=== PATIENT | female | born 1990 | race Caucasian/White ===

== ENCOUNTER 2019-01-16 16:10 | Inpatient (IN) | payer MEDICAID, OTHER ==
[~2019-01-16] VITALS: Ht 170.2 cm; Wt 86.3 kg
[~2019-01-16 16:10] MED LIST: ACET1TAB40 PO; ACET325T33 PO; BIRTH CONTROL; CEPH-443 PO; METR500T PO; NAPR-985 PO
[2019-01-16] MEDS ORDERED: ONDANSETRON 4 MG INJ IV STA (17:35)
[2019-01-16] MEDS ORDERED: FAMOTIDINE 20 MG INJ IV STA (17:35)
[2019-01-16] MEDS ORDERED: morphine 4 MG/ML VIAL IV STA (17:35)
[2019-01-16] MEDS ORDERED: SOD CHLORIDE 0.9% 100 ML ONE (19:37)
[2019-01-16] MEDS ORDERED: IOHEXOL 300MG/ML 150 ML BTL ONE (19:37)
--- NOTE | 2019-01-16 20:23 | ERD ---
ER Documentation Chief Complaint Chief Complaint INTERMITTENT EPIGASTRIC PAIN X 3 WEEKS, + GERD HPI 28-year-old female with history of cholelithiasis, presents the emergency department, complaining of worsening of epigastric pain for 3 days. The pain is dull, sometimes burning, constant, 8/10, associated with gastric reflux. The patient has been taking antiacid medications without improvement of the symptoms. She was seen at [facility] 2 weeks ago at that time a transaminitis of ALT 1011 was documented, no evidence of cholecystitis according to the ultrasound. Currently the patient denies fevers, no chills. ROS All systems reviewed and are negative except as per history of present illness. Medications Home Meds Active Scripts Metronidazole* (Flagyl*) 500 Mg Tablet, 500 MG PO BID for 7 Days, TAB Prov:ROBB NAQVI PA-C 07/12/16 Naproxen* (Naprosyn*) 500 Mg Tablet, 500 MG PO BID, #30 TAB Prov:ROBB NAQVI PA-C 07/12/16 Acetaminophen-Codeine* (Acetaminophen-Cod #3*) 300-30 Mg Tab, 1 TAB PO Q4H PRN for PAIN, #10 TAB Prov:DANIELLE LOPEZ MD 03/24/16 Cephalexin* (Keflex*) 500 Mg Capsule, 500 MG PO QID for 5 Days, CAP Prov:FIORDALIZA CARO DO 03/19/16 Acetaminophen* (Tylenol*) 325 Mg Tablet, 2 TAB PO Q8 PRN for PAIN AND OR ELEVATED TEMP, #10 TAB Prov:FIORDALIZA CARO DO 03/19/16 Reported Medications [ Control] No Conflict Check 05/04/10 Allergies Allergies: Coded Allergies: ceftriaxone (Verified Allergy, Severe, SOB,chest tightness, 01/16/19) PMhx/Soc History of Surgery: No Anesthesia Reaction: No Hx Neurological Disorder: No Hx Respiratory Disorders: No Hx Cardiac Disorders: No Hx Psychiatric Problems: No Hx Miscellaneous Medical Probl: Yes (GERD ) Hx Alcohol Use: No Hx Substance Use: No Hx Tobacco Use: No Smoking Status: Never smoker Physical Exam Vitals Vital Signs Date Temp Pulse Resp B/P (MAP) Pulse Ox O2 O2 Flow FiO2 Time Delivery Rate 01/16/19 98.9 99 18 156/72 98 16:19 (100) Physical Exam Patient alert, oriented, vital signs stable, mild distress due to pain. HEENT: Normocephalic, atraumatic. EYES: PERRLA, EOMI, Sclera and conjunctiva appear normal. EARS: Canals clear, tympanic membranes WNL. THROAT: Normal oropharynx. NECK: Supple, No lymphadenopathy. Full ROM without pain or tenderness. HEART: RRR, no rubs, murmurs, clicks or gallops. LUNGS: Clear to auscultation. ABDOMEN: Soft, tender to palpation in the right upper quadrant, + [place] EXTREMITIES: No edema bilaterally. BACK: Full ROM, no deformity, normal back exam NEURO: Cranial nerves grossly intact, no motor or sensory deficit Result Diagram: 01/17/1944901/17/19449 Results 24 hrs Laboratory Tests Test 01/16/19 17:40 01/16/19 17:46 White Blood Count 5.5 10^3/ul Red Blood Count 4.72 10^6/ul Hemoglobin 13.9 g/dl Hematocrit 41.7 % Mean Corpuscular Volume 88.3 fl Mean Corpuscular Hemoglobin 29.4 pg Mean Corpuscular Hemoglobin Concent 33.3 g/dl Red Cell Distribution Width 12.4 % Platelet Count 282 10^3/UL Mean Platelet Volume 9.3 fl Immature Granulocytes % 0.400 % Neutrophils % 55.1 % Lymphocytes % 31.9 % Monocytes % 11.7 % Eosinophils % 0.5 % Basophils % 0.4 % Nucleated Red Blood Cells % 0.0 /100WBC Immature Granulocytes # 0.020 10^3/ul Neutrophils # 3.0 10^3/ul Lymphocytes # 1.7 10^3/ul Monocytes # 0.6 10^3/ul Eosinophils # 0.0 10^3/ul Basophils # 0.0 10^3/ul Nucleated Red Blood Cells # 0.0 10^3/ul Urine Color YELLOW Urine Clarity SLIGHTLY CLOUDY Urine pH 8.0 Urine Specific [place] 1.010 Urine Ketones 1+ mg/dL Urine Nitrite NEGATIVE mg/dL Urine Bilirubin NEGATIVE mg/dL Urine Urobilinogen NEGATIVE mg/dL Urine Leukocyte Esterase NEGATIVE Herman/ul Urine Microscopic RBC 6 /HPF Urine Microscopic WBC 2 /HPF Urine Squamous Epithelial Cells MODERATE /HPF Urine Bacteria FEW /HPF Urine Hemoglobin NEGATIVE mg/dL Urine Glucose NEGATIVE mg/dL Urine Total Protein NEGATIVE mg/dl Sodium Level 140 mmol/L Potassium Level 4.3 mmol/L Chloride Level 102 mmol/L Carbon Dioxide Level 25 mmol/L Anion Gap 13 Blood Urea Nitrogen 9 mg/dl Creatinine 0.67 mg/dl Est Glomerular Filtrat Rate mL/min > 60 mL/min Glucose Level 89 mg/dl Calcium Level 10.2 mg/dl Total Bilirubin 0.4 mg/dl Direct Bilirubin 0.00 mg/dl Indirect Bilirubin 0.4 mg/dl Aspartate Amino Transf (AST/SGOT) 410 IU/L Alanine Aminotransferase (ALT/SGPT) 546 IU/L Alkaline Phosphatase 98 IU/L Total Protein 9.3 g/dl Albumin 4.8 g/dl Globulin 4.50 g/dl Albumin/Globulin Ratio 1.06 Lipase 82 U/L POC Beta HCG, Qualitative NEGATIVE Current Medications Medications Dose Sig/Adriana Start Time Status Last (Trade) Ordered Route PRN Stop Time Admin Dose Reason Admin Morphine 4 mg ONCE STAT 01/16/19 DC 01/16/19 Sulfate IV 17:35 01/16/19 17:43 (morphine) 17:36 Ondansetron 4 mg ONCE STAT 01/16/19 DC 01/16/19 HCl (Zofran IV 17:35 01/16/19 17:43 Inj) 17:36 Famotidine 20 mg ONCE STAT 01/16/19 DC 01/16/19 (Pepcid Iv) IV 17:35 01/16/19 17:43 17:36 IV Flush 10 ml STK-MED 01/16/19 DC (NS 10 ml) ONCE .ROUTE 19:37 01/16/19 19:38 Sodium 100 ml @ ud STK-MED 01/16/19 DC Chloride ONCE .ROUTE 19:37 01/16/19 19:38 Iohexol 150 ml STK-MED 01/16/19 DC (Omnipaque ONCE .ROUTE 19:37 01/16/19 300mg/ ml) 19:38 Sodium 1,000 ml @ Q1H ONCE 01/16/19 DC 01/16/19 Chloride 1,000 mls/hr IV 21:00 01/16/19 21:03 21:59 Piperacillin 100 ml @ ONCE ONCE 01/16/19 Cancel Sod/ 200 mls/hr IVPB 21:00 01/16/19 Tazobactam 21:29 Sod Morphine 2 mg ONCE STAT 01/16/19 DC 01/16/19 Sulfate IV 20:46 01/16/19 21:03 (morphine) 20:50 Sodium 1,000 ml @ [id number] IV 01/16/19 DC 01/16/19 Chloride 80 mls/hr 21:27 01/17/19 23:41 09:56 DIAGNOSTIC IMAGING REPORT Patient: MARLENE OLMEDO : 1990 Age: 28 Sex: F MR #: [id number] DOS: 01/16/19 1735 Ordering MD: DANIELLE LOPEZ MD Location: [facility] Room/Bed: PROCEDURE: Right upper quadrant ultrasound CLINICAL INDICATION: Abdominal pain TECHNIQUE: Multiple real-time images were acquired of the patient's abdomen and right retroperitoneum utilizing a high resolution transducer. COMPARISON: None FINDINGS: The liver is normal in echogenicity and measures 13.7 cm. No focal hepatic masses are seen. The gallbladder is physiologically distended. There is a s tommie large stone in the neck of the gallbladder. There is borderline thickening of the gallbladder wall. No pericholecystic fluid is seen. The intra and extrahepatic bile ducts are normal in caliber. The common bile duct measures 4.4 mm. Midline images demonstrate the pancreas to be normal in echogenicity without obvious inflammatory change. Survey views of the right kidney demonstrate no evidence of hydronephrosis or renal calculi. The right kidney measures 9.5 cm. IMPRESSION: 1. Large 2 cm gallstone in the neck of the gallbladder. There is borderline thickening of the gallbladder wall. No pericholecystic fluid. 2. No biliary duct dilatation RPTAT: HH .Adam Becerra MD, Date Time Electronically viewed and signed by .Adam Becerra MD, on 01/16/2019 18:26 .W/ CC: DANIELLE LOPEZ MD DIAGNOSTIC IMAGING REPORT Patient: MARLENE OLMEDO : 1990 Age: 28 Sex: F MR #: [id number] [facility] #: [id number] DOS: 01/16/19 1922 Ordering MD: DANIELLE LOPEZ MD Location: [facility] Room/Bed: PROCEDURE: CT Abdomen and Pelvis With Intravenous Contrast CLINICAL INDICATION: Abdominal pain. TECHNIQUE: Axial computed tomography images of the abdomen and pelvis with intravenous contrast. Sagittal and coronal reformatted images were created and reviewed. CTDIvol (mGy) = 13.95; total DLP (mGy-cm) = 798.49. This CT exam was performed using one or more of the following dose reduction techniques: automated exposure control, adjustment of the mA and/or kV according to patient size, and /or use of iterative reconstruction technique. DICOM images are available. CONTRAST: 100 mL of Omnipaque-300 was administered intravenously. COMPARISON: Right upper quadrant ultrasound examination dated 01/16/2019. FINDINGS: LUNG BASES: Unremarkable. No mass. No consolidation. ABDOMEN: LIVER: Unremarkable. No mass. GALLBLADDER AND BILE DUCTS: Noncalcified gallstones in the gallbladder. No gallbladder wall thickening or pericholecystic fluid. No ductal dilation. PANCREAS: Unremarkable. No mass. No ductal dilation. SPLEEN: Unremarkable. No splenomegaly. ADRENALS: Unremarkable. No mass. KIDNEYS AND URETERS: Nonobstructing 3 mm calculus lower pole right kidney. No additional calculi on either side. No hydronephrosis. STOMACH AND BOWEL: Unremarkable. No obstruction. No mucosal thickening. PELVIS: APPENDIX: No findings to suggest acute appendicitis. BLADDER: Unremarkable. No mass. REPRODUCTIVE: Unremarkable as visualized. ABDOMEN and PELVIS: INTRAPERITONEAL SPACE: Unremarkable. No free air. No significant fluid collection. BONES/JOINTS: Degenerative disc changes L5-S1. No acute osseous abnormality. No dislocation. SOFT TISSUES: Unremarkable. VASCULATURE: Unremarkable. LYMPH NODES: Unremarkable. No enlarged lymph nodes. IMPRESSION: 1. Noncalcified gallstones in the gallbladder. No gallbladder wall thickening or pericholecystic fluid. No biliary dilatation. 2. Nonobstructing 3 mm calculus lower pole right kidney. No additional calculi on either side. No hydronephrosis. 3. No acute abnormality demonstrated in the abdomen and pelvis. RPTAT: [facility] Carroll Benítez Physician Date Time Electronically viewed and signed by Carroll Benítez Physician User Interface Developer on 01/16/2019 20:27 Procedures/MDM Vital signs stable. Differential diagnosis include but not limited to: UTI, colitis, gastroenteritis, kidney stones, irritable bowel syndrome, inflammatory bowel syndrome, malabsorption syndrome, cholelithiasis, food intolerance, medication side effect, pancreatitis, diverticulitis, bowel obstruction. Physical examination and clinical presentation consistent most likely with intractable abdominal pain secondary to cholelithiasis with early cholecystitis and transaminitis. During the ED course the patient remained stable, persisted with pain despite the medications given in the emergency department, therefore, we will request an admission for further evaluation and management. Results and clinical impression discussed with the patient who agrees with management. The patient is stable to be treated admitted in [facility]. Dr.Daniel Houser - Surgery- has been consulted. Disclaimer: Inadvertent spelling and grammatical errors are likely due to EHR/dictation software use and do not reflect on the overall quality of patient care. Also, please note that the electronic time recorded on this note does not necessarily reflect the actual time of the patient encounter. Departure Condition: Stable DAMIÁN GARCIA MD Jan 16, 2019 20:23
[2019-01-16] MEDS ORDERED: morphine 2 MG INJ IV STA (20:46)
[2019-01-16] MEDS ORDERED: PIPER-TAZO 3.375 GM IV (PMX) 100 ML IVPB ONE (21:00)
[2019-01-16] MEDS ORDERED: SOD CHLORIDE 0.9% 1,000 ML IV ONE (21:00)
[2019-01-16] MEDS ORDERED: SOD CHLORIDE 0.9% 1,000 ML IV SCH (21:27)
[2019-01-16] MEDS ORDERED: metroNIDAZOLE 500 MG/NS (PMX) 100 ML IVPB ONE (21:30)
[2019-01-16] MEDS ORDERED: KETOROLAC 30 MG INJ IV PRN (21:30)
[2019-01-16] MEDS ORDERED: ONDANSETRON 4 MG INJ IV PRN ×2 (21:30→22:00)
[2019-01-16] MEDS ORDERED: CIPROFLOXACIN 400MG/D5W 200 ML IVPB ONE (21:30)
[2019-01-16] MEDS ORDERED: ACETAMINOPHEN 325 MG TAB PO PRN ×2 (21:30→22:00)
--- NOTE | 2019-01-16 21:39 | HP ---
Date/Time of Note Date/Time of Note DATE: 01/16/19 TIME: 21:39 Assessment/Plan VTE Prophylaxis SCD applied (from Nsg): Yes Pharmacological prophylaxis: NA/contraindicated Pharm contraindication: low risk/ambulating Lines/Catheters IV Catheter Type (from Nrsg): Saline Lock Assessment/Plan Hospital Course This is a 28-year-old female being admitted to the [facility] floor for: #1 epigastric pain: Possibly multifactorial secondary to impacted gallstone and/or dyspepsia. Patient does report that she has been feeling bloated for a course of 3 weeks. She has been told she has gallstones which has been confirmed on today's ultrasound as well. There is a gallstone in the neck of the gallbladder. Patient also reports symptoms of acid reflux. General surgery Dr. Houser has been consulted at the current time who recommends MRCP for further evaluation. We will also provide the patient with Protonix 40 mg IV daily as well as Carafate 1 mg p.o. every 6 hours times 1 day. Consider GI consultation if indicated. We will keep the patient n.p.o. except meds. Prophylactic antibiotics of Cipro and Flagyl. #2 transaminitis: We will check hepatitis panel, will get an MRCP as per #1. #3 obesity: We will check hemoglobin A1c, lipid panel, TSH #4 history of diabetes mellitus: Patient reports a history of hemoglobin A1c of 9 in the past. She has been able to control her diabetes according to her with diet alone. Will check hemoglobin A1c. #5 DVT GI prophylaxis: SCDs, Protonix IV Further treatment strategy will be implemented as per the clinical course Result Diagram: 01/16/19 1740 01/16/19 1740 Results 24hrs Laboratory Tests Test 01/16/19 17:40 01/16/19 17:46 White Blood Count 5.5 # Red Blood Count 4.72 Hemoglobin 13.9 Hematocrit 41.7 Mean Corpuscular Volume 88.3 Mean Corpuscular Hemoglobin 29.4 Mean Corpuscular Hemoglobin Concent 33.3 Red Cell Distribution Width 12.4 Platelet Count 282 Mean Platelet Volume 9.3 # Immature Granulocytes % 0.400 Neutrophils % 55.1 Lymphocytes % 31.9 Monocytes % 11.7 H Eosinophils % 0.5 Basophils % 0.4 Nucleated Red Blood Cells % 0.0 Immature Granulocytes # 0.020 Neutrophils # 3.0 Lymphocytes # 1.7 Monocytes # 0.6 Eosinophils # 0.0 Basophils # 0.0 Nucleated Red Blood Cells # 0.0 Urine Color YELLOW Urine Clarity SLIGHTLY CLOUDY A Urine pH 8.0 Urine Specific [place] 1.010 Urine Ketones 1+ H Urine Nitrite NEGATIVE Urine Bilirubin NEGATIVE Urine Urobilinogen NEGATIVE Urine Leukocyte Esterase NEGATIVE Urine Microscopic RBC 6 H Urine Microscopic WBC 2 Urine Squamous Epithelial Cells MODERATE Urine Bacteria FEW A Urine Hemoglobin NEGATIVE Urine Glucose NEGATIVE Urine Total Protein NEGATIVE Sodium Level 140 Potassium Level 4.3 Chloride Level 102 Carbon Dioxide Level 25 Anion Gap 13 Blood Urea Nitrogen 9 Creatinine 0.67 Est Glomerular Filtrat Rate mL/min > 60 Glucose Level 89 Calcium Level 10.2 Total Bilirubin 0.4 Direct Bilirubin 0.00 Indirect Bilirubin 0.4 Aspartate Amino Transf (AST/SGOT) 410 H Alanine Aminotransferase (ALT/SGPT) 546 H Alkaline Phosphatase 98 Total Protein 9.3 H Albumin 4.8 Globulin 4.50 H Albumin/Globulin Ratio 1.06 Lipase 82 POC Beta HCG, Qualitative NEGATIVE HPI/ROS Admit Date/Time Admit Date/Time Hx of Present Illness Chief complaint: Epigastric pain times 3 weeks, worse over the last 3 days This is a 28-year-old female with history of cholelithiasis, presents the emergency department, complaining of worsening of epigastric pain for 3 days. The pain is dull, sometimes burning, constant, 8/10, associated with gastric reflux. The patient has been taking antiacid medications without improvement of the symptoms. She was seen at [facility] 2 weeks ago at that time a transaminitis of ALT 1011 was documented, no evidence of cholecystitis according to the ultrasound. Patient continues to have recurrent symptoms as well as feeling abdominal bloating. She does report a history of diabetes with her hemoglobin A1c being 9 at one point however she has been able to control it with diet alone. Allergies: Ceftriaxone Medications: None ROS Const: As per HPI Eyes : No pain discharge or redness or change in visual acuity ENT: No pain, sore throat, congestion, congestion, dysphagia or discharge Respiratory: No shortness of breath, cough, sputum, wheezing, or pleuritic pain Cardiovascular: No chest pain, palpitation, PND, or edema GI : As per HPI Genitourinary: No dysuria, hematuria, flank pain , discharge or CVA tenderness Musculoskeletal: No joint pain, back pain, neck pain, restricted range of motion in neck or joints Skin: No rash, bruising or hives Neuro: No headache, dizziness, syncope, seizure, focal weakness Endocrine: No polyuria, polydipsia, temperature intolerance Psych: No hallucination, depression, anxiety or suicidal ideation PMH/Family/Social Past Medical History Gallstones, diabetes mellitus Medications Current Medications Sodium Chloride 1,000 ml @ 1,000 mls/hr Q1H ONCE IV Last administered on 01/16/19at 21:03; Admin Dose 1,000 MLS/HR; Start 01/16/19 at 21:00; Stop 01/16/19 at 21:59 Ciprofloxacin/ Dextrose 200 ml @ 200 mls/hr ONCE ONCE IVPB ; Start 01/16/19 at 21:30; Stop 01/16/19 at 22:29 Metronidazole 100 ml @ 100 mls/hr ONCE ONCE IVPB ; Start 01/16/19 at 21:30; Stop 01/16/19 at 22:29 Sodium Chloride 1,000 ml @ 80 mls/hr [id number] IV ; Start 01/16/19 at 21:27; Stop 01/17/19 at 09:56 Ketorolac Tromethamine (Toradol) 30 mg ER BRIDGE PRN IV .PAIN; Start 01/16/19 at 21:30; Stop 01/17/19 at 21:29 Ondansetron HCl (Zofran Inj) 4 mg BRIDGE ORDER PRN IV NAUSEA/VOMITING; Start 01/16/19 at 21:30; Stop 01/17/19 at 21:29 Acetaminophen (Tylenol Tab) 650 mg ER BRIDGE PRN PO .MILD PAIN 1-3 OR TEMP; Start 01/16/19 at 21:30; Stop 01/17/19 at 21:29 Sodium Chloride 1,000 ml @ 100 mls/hr Q10H IV ; Start 01/17/19 at 00:00; Status UNV IV Flush (NS 3 ml) 3 ml PER PROTOCOL IV ; Start 01/16/19 at 22:00; Status UNV Ondansetron HCl (Zofran Inj) 4 mg Q6H PRN IV NAUSEA/VOMITING; Start 01/16/19 at 22:00; Status UNV Acetaminophen (Tylenol Tab) 650 mg Q6H PRN PO .PAIN 1-3 OR TEMP; Start 01/16/19 at 22:00; Status UNV Hydromorphone HCl (Dilaudid) 0.5 mg Q4H PRN IV .SEVERE PAIN 7-10; Start 01/16/19 at 22:00; Status UNV Docusate Sodium (Colace) 100 mg Q12H PRN PO .CONSTIPATION; Start 01/16/19 at 22:00; Status UNV Bisacodyl (Dulcolax) 5 mg DAILY PRN PO .CONSTIPATION; Start 01/16/19 at 22:00; Status UNV Ciprofloxacin/ Dextrose 200 ml @ 200 mls/hr Q12 IVPB ; Start 01/17/19 at 09:00; Status UNV Metronidazole 100 ml @ 100 mls/hr Q6 IVPB ; Start 01/17/19 at 00:00; Status UNV Coded Allergies: ceftriaxone (Verified Allergy, Severe, SOB,chest tightness, 01/16/19) Past Surgical History Past Surgical Hx: no surgical history Family History Significant Family History: no pertinent family hx Social History Alcohol Use: none Smoking Status: Never smoker Drug Use: none Exam/Review of Systems Vital Signs Vitals Vital Signs Date Temp Pulse Resp B/P (MAP) Pulse Ox O2 O2 Flow FiO2 Time Delivery Rate 01/16/19 98.9 99 18 156/72 98 16:19 (100) Exam Exam General: Patient is currently lying in bed in mild distress from abdominal pain HEENT: Atraumatic, normocephalic. The pupils are equal, round and reactive. Extraocular motor are intact Neck: Supple with full range of motion. No rigidity or meningismus Chest: Nontender Lungs: Clear to auscultation bilaterally no crackles rales or wheezing Heart: Normal S1-S2, Regular rhythm and rate. No murmur, S3, or S4 Abdomen: Obese, soft , tenderness to palpation over the epigastric region, mild tenderness elevation of the right upper quadrant. Normal bowel sounds. Abdomen nondistended. No CVA tenderness to palpation bilaterally Extremities: Normal to inspection, no edema no cyanosis Neurologic: Normal mental status, speech normal, cranial nerves II through XII are intact, motor and sensory are intact, no focal weakness Additional Comments PROCEDURE: Right upper quadrant ultrasound CLINICAL INDICATION: Abdominal pain TECHNIQUE: Multiple real-time images were acquired of the patient's abdomen and right retroperitoneum utilizing a high resolution transducer. COMPARISON: None FINDINGS: The liver is normal in echogenicity and measures 13.7 cm. No focal hepatic masses are seen. The gallbladder is physiologically distended. There is a single large stone in the neck of the gallbladder. There is borderline thickening of the gallbladder wall. No pericholecystic fluid is seen. The intra and extrahepatic bile ducts are normal in caliber. The common bile duct measures 4.4 mm. Midline images demonstrate the pancreas to be normal in echogenicity without obvious inflammatory change. Survey views of the right kidney demonstrate no evidence of hydronephrosis or renal calculi. The right kidney measures 9.5 cm. IMPRESSION: 1. Large 2 cm gallstone in the neck of the gallbladder. There is borderline thickening of the gallbladder wall. No pericholecystic fluid. 2. No biliary duct dilatation RPTAT: HH .Adam Becerra MD, MD Date Time Electronically viewed and signed by .Adam Becerra MD, MD on 01/16/2019 18:26 .W/ CC: DANIELLE LOPEZ MD [id number] PROCEDURE: CT Abdomen and Pelvis With Intravenous Contrast CLINICAL INDICATION: Abdominal pain. TECHNIQUE: Axial computed tomography images of the abdomen and pelvis with intravenous contrast. Sagittal and coronal reformatted images were created and reviewed. CTDIvol (mGy) = 13.95; total DLP (mGy-cm) = 798.49. This CT exam was performed using one or more of the following dose reduction techniques: automated exposure control, adjustment of the mA and/or kV according to patient size, and/or use of iterative reconstruction technique. DICOM images are available. CONTRAST: 100 mL of Omnipaque-300 was administered intravenously. COMPARISON: Right upper quadrant ultrasound examination dated 01/16/2019. FINDINGS: LUNG BASES: Unremarkable. No mass. No consolidation. ABDOMEN: LIVER: Unremarkable. No mass. GALLBLADDER AND BILE DUCTS: Noncalcified gallstones in the gallbladder. No gallbladder wall thickening or pericholecystic fluid. No ductal dilation. PANCREAS: Unremarkable. No mass. No ductal dilation. SPLEEN: Unremarkable. No splenomegaly. ADRENALS: Unremarkable. No mass. KIDNEYS AND URETERS: Nonobstructing 3 mm calculus lower pole right kidney. No additional calculi on either side. No hydronephrosis. STOMACH AND BOWEL: Unremarkable. No obstruction. No mucosal thickening. PELVIS: APPENDIX: No findings to suggest acute appendicitis. BLADDER: Unremarkable. No mass. REPRODUCTIVE: Unremarkable as visualized. ABDOMEN and PELVIS: INTRAPERITONEAL SPACE: Unremarkable. No free air. No significant fluid collection. BONES/JOINTS: Degenerative disc changes L5-S1. No acute osseous abnormality. No dislocation. SOFT TISSUES: Unremarkable. VASCULATURE: Unremarkable. LYMPH NODES: Unremarkable. No enlarged lymph nodes. IMPRESSION: 1. Noncalcified gallstones in the gallbladder. No gallbladder wall thickening or pericholecystic fluid. No biliary dilatation. 2. Nonobstructing 3 mm calculus lower pole right kidney. No additional calculi on either side. No hydronephrosis. 3. No acute abnormality demonstrated in the abdomen and pelvis. RPTAT: [facility] Carroll Benítez Physician Pony Worker Date Time Electronically viewed and signed by Carroll Benítez Physician Pony Worker on 01/16/2019 20:27 RmC/ CC: DANIELLE LOPEZ MD [id number] GUDELIA MITCHELL Jan 16, 2019 21:39
[2019-01-16] MEDS ORDERED: NACL 0.9% 3 ML SYG IV SCH (22:00)
[2019-01-16] MEDS ORDERED: DOCUSATE SODIUM 100 MG CAP PO PRN (22:00)
[2019-01-16] MEDS ORDERED: BISACODYL (EC) 5 MG TAB PO PRN (22:00)
[2019-01-17 00:30] VITALS: Ht 170.2 cm; Wt 86.3 kg
[2019-01-17 00:53] VITALS: BP 130/79; PULSE 82; RESP 16
[2019-01-17] MEDS: SUCRALFATE 1 GM TAB PO SCH ×3 (01:36→17:03)
[2019-01-17] MEDS: SOD CHLORIDE 0.9% 1,000 ML IV SCH ×2 (01:36→14:05)
--- NOTE | 2019-01-17 02:14 | CONS ---
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 IV antibiotics laparoscopic cholecystectomy tomorrow. No need at this time for ERCP Consultation Date/Type/Reason Admit Date/Time Date of Consultation: Jan 17, 2019 Type of Consult General surgery consult Reason for Consultation Abdominal pain elevated LFTs gallstones Requesting Provider: GUDELIA MITCHELL Date/Time of Note DATE: 01/17/19 TIME: 02:13 Hx of Present Illness Patient 28-year-old female who has had several episodes of epigastric right upper quadrant pain over the past several months. [facility] has been noted to have elevated LFTs with transaminases in the 800-1000 range just as recently as a couple of weeks ago. She was told that she would need to be referred out but because of lack of insurance she was unable to seek further evaluation. She presented to the emergency room at [facility] today and was noted to have severe epigastric right upper quadrant pain. On ultrasound she was noted to have a large gallstone measuring approximately 2 cm with impaction to the neck of the gallbladder. LFTs were elevated with an AST/ALT 410/546 alk phos is 98 total bilirubin 0.4 MRI was performed and showed no evidence of choledocholithiasis She also has been complaining of reflux symptoms She denies any past surgical history past medical history She is with 2 children ages 11 and 6 Past Medical History Home Meds Active Scripts Metronidazole* (Flagyl*) 500 Mg Tablet, 500 MG PO BID for 7 Days, TAB Prov:ROBB NAQVI PA-C 07/12/16 Naproxen* (Naprosyn*) 500 Mg Tablet, 500 MG PO BID, #30 TAB Prov:ROBB NAQVI PA-C 07/12/16 Acetaminophen-Codeine* (Acetaminophen-Cod #3*) 300-30 Mg Tab, 1 TAB PO Q4H PRN for PAIN, #10 TAB Prov:DANIELLE LOPEZ MD 03/24/16 Cephalexin* (Keflex*) 500 Mg Capsule, 500 MG PO QID for 5 Days, CAP Prov:FIORDALIZA CARO DO 03/19/16 Acetaminophen* (Tylenol*) 325 Mg Tablet, 2 TAB PO Q8 PRN for PAIN AND OR ELEVATED TEMP, #10 TAB Prov:FIORDALIZA CARO DO 03/19/16 Reported Medications [ Control] No Conflict Check 05/04/10 Medications Current Medications Sodium Chloride 1,000 ml @ 80 mls/hr [id number] IV Last administered on 01/16/19at 23:41; Admin Dose 80 MLS/HR; Start 01/16/19 at 21:27; Stop 01/17/19 at 09:56 Ketorolac Tromethamine (Toradol) 30 mg ER BRIDGE PRN IV .PAIN; Start 01/16/19 at 21:30; Stop 01/17/19 at 21:29 Ondansetron HCl (Zofran Inj) 4 mg BRIDGE ORDER PRN IV NAUSEA/VOMITING; Start 01/16/19 at 21:30; Stop 01/17/19 at 21:29 Acetaminophen (Tylenol Tab) 650 mg ER BRIDGE PRN PO .MILD PAIN 1-3 OR TEMP Last administered on 01/17/19at 01:36; Admin Dose 650 MG; Start 01/16/19 at 21:30; Stop 01/17/19 at 21:29 Sodium Chloride 1,000 ml @ 100 mls/hr Q10H IV Last administered on 01/17/19at 01:36; Admin Dose 100 MLS/HR; Start 01/17/19 at 00:00 IV Flush (NS 3 ml) 3 ml PER PROTOCOL IV ; Start 01/16/19 at 22:00 Ondansetron HCl (Zofran Inj) 4 mg Q6H PRN IV NAUSEA/VOMITING; Start 01/16/19 at 22:00 Acetaminophen (Tylenol Tab) 650 mg Q6H PRN PO .PAIN 1-3 OR TEMP; Start 01/16/19 at 22:00 Hydromorphone HCl (Dilaudid) 0.5 mg Q4H PRN IV .SEVERE PAIN 7-10; Start 01/16/19 at 22:00 Docusate Sodium (Colace) 100 mg Q12H PRN PO .CONSTIPATION; Start 01/16/19 at 22:00 Bisacodyl (Dulcolax) 5 mg DAILY PRN PO .CONSTIPATION; Start 01/16/19 at 22:00 Ciprofloxacin/ Dextrose 200 ml @ 200 mls/hr Q12 IVPB ; Start 01/17/19 at 09:00 Metronidazole 100 ml @ 100 mls/hr Q6 IVPB ; Start 01/17/19 at 00:00 Pantoprazole (Protonix Iv) 40 mg DAILY@06 IV ; Start 01/17/19 at 00:30 Sucralfate (Carafate) 1 gm Q6 PO Last administered on 01/17/19at 01:36; Admin Dose 1 GM; Start 01/17/19 at 00:30; Stop 01/18/19 at 00:29 Allergies: Coded Allergies: ceftriaxone (Verified Allergy, Severe, SOB,chest tightness, 01/16/19) Past Surgical History Past Surgical Hx: no surgical history Social History Alcohol Use: none Smoking Status: Never smoker Drug Use: none Exam/Review of Systems Exam Vitals Vital Signs Date Temp Pulse Resp B/P (MAP) Pulse Ox O2 O2 Flow FiO2 Time Delivery Rate 01/17/19 98.6 82 16 130/79 97 Room Air 00:53 (96) Exam Patient is alert and oriented x3 complaining of epigastric pain and burning HEENT pupils equal react light sclerae anicteric. Lungs clear to auscultation. Heart regular rate and rhythm without gallops murmurs or rubs normal S1-S2. Abdomen soft mildly obese with moderate tenderness to epigastrium on deep palpation. Results Result Diagram: 01/16/19 1740 01/16/19 1740 Results 24hrs Laboratory Tests Test 01/16/19 17:40 01/16/19 17:46 White Blood Count 5.5 # Red Blood Count 4.72 Hemoglobin 13.9 Hematocrit 41.7 Mean Corpuscular Volume 88.3 Mean Corpuscular Hemoglobin 29.4 Mean Corpuscular Hemoglobin Concent 33.3 Red Cell Distribution Width 12.4 Platelet Count 282 Mean Platelet Volume 9.3 # Immature Granulocytes % 0.400 Neutrophils % 55.1 Lymphocytes % 31.9 Monocytes % 11.7 H Eosinophils % 0.5 Basophils % 0.4 Nucleated Red Blood Cells % 0.0 Immature Granulocytes # 0.020 Neutrophils # 3.0 Lymphocytes # 1.7 Monocytes # 0.6 Eosinophils # 0.0 Basophils # 0.0 Nucleated Red Blood Cells # 0.0 Urine Color YELLOW Urine Clarity SLIGHTLY CLOUDY A Urine pH 8.0 Urine Specific [place] 1.010 Urine Ketones 1+ H Urine Nitrite NEGATIVE Urine Bilirubin NEGATIVE Urine Urobilinogen NEGATIVE Urine Leukocyte Esterase NEGATIVE Urine Microscopic RBC 6 H Urine Microscopic WBC 2 Urine Squamous Epithelial Cells MODERATE Urine Bacteria FEW A Urine Hemoglobin NEGATIVE Urine Glucose NEGATIVE Urine Total Protein NEGATIVE Sodium Level 140 Potassium Level 4.3 Chloride Level 102 Carbon Dioxide Level 25 Anion Gap 13 Blood Urea Nitrogen 9 Creatinine 0.67 Est Glomerular Filtrat Rate mL/min > 60 Glucose Level 89 Calcium Level 10.2 Total Bilirubin 0.4 Direct Bilirubin 0.00 Indirect Bilirubin 0.4 Aspartate Amino Transf (AST/SGOT) 410 H Alanine Aminotransferase (ALT/SGPT) 546 H Alkaline Phosphatase 98 Total Protein 9.3 H Albumin 4.8 Globulin 4.50 H Albumin/Globulin Ratio 1.06 Lipase 82 POC Beta HCG, Qualitative NEGATIVE Medications Medication Current Medications Sodium Chloride 1,000 ml @ 80 mls/hr [id number] IV Last administered on 01/16/19at 23:41; Admin Dose 80 MLS/HR; Start 01/16/19 at 21:27; Stop 01/17/19 at 09:56 Ketorolac Tromethamine (Toradol) 30 mg ER BRIDGE PRN IV .PAIN; Start 01/16/19 at 21:30; Stop 01/17/19 at 21:29 Ondansetron HCl (Zofran Inj) 4 mg BRIDGE ORDER PRN IV NAUSEA/VOMITING; Start 01/16/19 at 21:30; Stop 01/17/19 at 21:29 Acetaminophen (Tylenol Tab) 650 mg ER BRIDGE PRN PO .MILD PAIN 1-3 OR TEMP Last administered on 01/17/19at 01:36; Admin Dose 650 MG; Start 01/16/19 at 21:30; Stop 01/17/19 at 21:29 Sodium Chloride 1,000 ml @ 100 mls/hr Q10H IV Last administered on 01/17/19at 01:36; Admin Dose 100 MLS/HR; Start 01/17/19 at 00:00 IV Flush (NS 3 ml) 3 ml PER PROTOCOL IV ; Start 01/16/19 at 22:00 Ondansetron HCl (Zofran Inj) 4 mg Q6H PRN IV NAUSEA/VOMITING; Start 01/16/19 at 22:00 Acetaminophen (Tylenol Tab) 650 mg Q6H PRN PO .PAIN 1-3 OR TEMP; Start 01/16/19 at 22:00 Hydromorphone HCl (Dilaudid) 0.5 mg Q4H PRN IV .SEVERE PAIN 7-10; Start 01/16/19 at 22:00 Docusate Sodium (Colace) 100 mg Q12H PRN PO .CONSTIPATION; Start 01/16/19 at 22:00 Bisacodyl (Dulcolax) 5 mg DAILY PRN PO .CONSTIPATION; Start 01/16/19 at 22:00 Ciprofloxacin/ Dextrose 200 ml @ 200 mls/hr Q12 IVPB ; Start 01/17/19 at 09:00 Metronidazole 100 ml @ 100 mls/hr Q6 IVPB ; Start 01/17/19 at 00:00 Pantoprazole (Protonix Iv) 40 mg DAILY@06 IV ; Start 01/17/19 at 00:30 Sucralfate (Carafate) 1 gm Q6 PO Last administered on 01/17/19at 01:36; Admin Dose 1 GM; Start 01/17/19 at 00:30; Stop 01/18/19 at 00:29 SULEMA AMADOR MD Jan 17, 2019 02:14
[2019-01-17] MEDS: PANTOPRAZOLE 40 MG INJ IV SCH (05:53)
[2019-01-17] MEDS: metroNIDAZOLE 500 MG/NS (PMX) 100 ML IVPB SCH ×5 (05:53→23:53)
[2019-01-17] MEDS: HYDROmorphONE 0.5 MG/0.5 ML SYG IV PRN ×3 (05:59→17:03)
[2019-01-17 07:29] VITALS: BP 109/62; PULSE 83; RESP 18
[2019-01-17] MEDS: CIPROFLOXACIN 400MG/D5W 200 ML IVPB SCH ×2 (08:06→21:10)
[2019-01-17] MEDS ORDERED: ASA/ACETAMINOPHEN/CAFF TAB PO ONE (10:30)
--- NOTE | 2019-01-17 10:38 | PN ---
Date/Time of Note Date/Time of Note DATE: 01/17/19 TIME: 10:36 Assessment/Plan VTE Prophylaxis SCD applied (from Nsg): Yes Pharmacological prophylaxis: NA/contraindicated Pharm contraindication: low risk/ambulating Lines/Catheters IV Catheter Type (from Nrsg): Peripheral IV Assessment/Plan Hospital Course SUBJECTIVE: Continues to have nausea/vomiting. OBJECTIVE: Physical Exam General: Adequately build 28 year-old female lying in bed in no apparent distress. HEENT: Normocephalic, atraumatic. Eyes: Anicteric sclerae, conjunctivae clear. ENT: Nasal septum midline, oral mucosa moist. Neck supple, no JVD noticed. Respiratory: Bilaterally clear breath sounds. No use of accessory muscles of respiration. No adventitious breath sounds. Cardiovascular: S1, S2 heard. Regular rate and rhythm. Abdomen: Soft and nondistended. Minimal epigastric tenderness. Bowel sounds positive in all 4 quadrants. Genitourinary: Deferred. Extremities: No cyanosis, no clubbing, no edema. Peripheral pulses palpable. Neurologic: Cranial nerves II through XII grossly intact. The patient is awake, alert, and oriented. Skin: Normal skin turgor. No skin rashes. Labs & Vitals per chart ASSESSMENT & PLAN 28-year-old female with comorbidities including obesity and diabetes currently off medications because of normal A1c. She came to the emergency room with chief complaint of epigastric pain for 3 days. The patient also verbalized bilious vomiting. The patient underwent a gallbladder ultrasound that showed a large 2 cm gallstone in the neck of the gallbladder with borderline thickening of the gallbladder wall. The patient underwent an MRCP that was negative for any choledocholithiasis. The patient was admitted to inpatient setting for further treatment and evaluation. 1. Symptomatic cholelithiasis. -Possible underlying cholecystitis -Continue n.p.o. -Continue pain control. -Continue IV fluids -Being followed by general surgery. -Plan for cholecystectomy. 2. Transaminitis without hyperbilirubinemia. -Most probably secondary to #1. -Management as per #1. -Hepatitis panel negative. 3. Prior history of diabetes mellitus -Current A1c 4.9. 4. Migraine headache. -PRN analgesics. 5. Obesity. -BMI 30. -Advised weight reduction. 6. Fluids, electrolytes, and nutrition. -N.p.o. except for medications. 7. DVT prophylaxis. -Bilateral SCDs. 8. Plan. -Continue pain control. -Continue IV fluids. -Continue antibiotics. -Await surgical intervention. The patient was seen in collaboration with Dr. Garrison. Result Diagram: 01/17/190 01/17/19 0450 Results 24hrs Laboratory Tests Test 01/16/19 17:40 01/16/19 17:46 01/17/19 04:50 White Blood Count 5.5 # 4.7 L Red Blood Count 4.72 4.25 Hemoglobin 13.9 12.3 Hematocrit 41.7 37.7 Mean Corpuscular Volume 88.3 88.7 Mean Corpuscular Hemoglobin 29.4 28.9 L Mean Corpuscular 33.3 32.6 Hemoglobin Concent Red Cell Distribution Width 12.4 12.5 Platelet Count 282 249 Mean Platelet Volume 9.3 # 9.1 Immature Granulocytes % 0.400 0.200 Neutrophils % 55.1 41.1 Lymphocytes % 31.9 39.4 Monocytes % 11.7 H 16.8 H Eosinophils % 0.5 1.9 Basophils % 0.4 0.6 Nucleated Red Blood Cells % 0.0 0.0 Immature Granulocytes # 0.020 0.010 Neutrophils # 3.0 1.9 Lymphocytes # 1.7 1.9 Monocytes # 0.6 0.8 Eosinophils # 0.0 0.1 Basophils # 0.0 0.0 Nucleated Red Blood Cells # 0.0 0.0 Urine Color YELLOW Urine Clarity SLIGHTLY CLOUDY A Urine pH 8.0 Urine Specific [place] 1.010 Urine Ketones 1+ H Urine Nitrite NEGATIVE Urine Bilirubin NEGATIVE Urine Urobilinogen NEGATIVE Urine Leukocyte Esterase NEGATIVE Urine Microscopic RBC 6 H Urine Microscopic WBC 2 Urine Squamous Epithelial Cells MODERATE Urine Bacteria FEW A Urine Hemoglobin NEGATIVE Urine Glucose NEGATIVE Urine Total Protein NEGATIVE Sodium Level 140 140 Potassium Level 4.3 4.1 Chloride Level 102 107 Carbon Dioxide Level 25 25 Anion Gap 13 8 Blood Urea Nitrogen 9 8 Creatinine 0.67 0.67 Est Glomerular Filtrat > 60 > 60 Rate mL/min Glucose Level 89 76 Calcium Level 10.2 9.0 Total Bilirubin 0.4 0.4 Direct Bilirubin 0.00 0.00 Indirect Bilirubin 0.4 0.4 Aspartate Amino 410 H 306 H Transf (AST/SGOT) Alanine 546 H 431 H Aminotransferase (ALT/SGPT) Alkaline Phosphatase 98 73 Total Protein 9.3 H 7.2 # Albumin 4.8 3.8 # Globulin 4.50 H 3.40 H Albumin/Globulin Ratio 1.06 1.11 Lipase 82 POC Beta HCG, Qualitative NEGATIVE Hemoglobin A1c 4.9 Magnesium Level 2.1 Triglycerides Level 63 Cholesterol Level 124 LDL Cholesterol, Calculated 58 HDL Cholesterol 53 Cholesterol/HDL Ratio 2.3 Thyroid Stimulating Pending Hormone (TSH) Hepatitis B Surface Antigen NEGATIVE Hepatitis B Core Total Antibody NEGATIVE Hepatitis C Antibody NEGATIVE Exam/Review of Systems Exam Vitals Vital Signs Date Temp Pulse Resp B/P (MAP) Pulse Ox O2 O2 Flow FiO2 Time Delivery Rate 01/17/19 97.9 83 18 109/62 97 07:29 (78) 01/17/19 Room Air 00:53 Intake and Output 01/16/19 01/16/19 01/17/19 1515:00 23:00 07:00 IntakeIntake Total 500 ml BalanceBalance 500 ml Results Results 24hrs Laboratory Tests Test 01/16/19 17:40 01/16/19 17:46 01/17/19 04:50 White Blood Count 5.5 # 4.7 L Red Blood Count 4.72 4.25 Hemoglobin 13.9 12.3 Hematocrit 41.7 37.7 Mean Corpuscular Volume 88.3 88.7 Mean Corpuscular Hemoglobin 29.4 28.9 L Mean Corpuscular 33.3 32.6 Hemoglobin Concent Red Cell Distribution Width 12.4 12.5 Platelet Count 282 249 Mean Platelet Volume 9.3 # 9.1 Immature Granulocytes % 0.400 0.200 Neutrophils % 55.1 41.1 Lymphocytes % 31.9 39.4 Monocytes % 11.7 H 16.8 H Eosinophils % 0.5 1.9 Basophils % 0.4 0.6 Nucleated Red Blood Cells % 0.0 0.0 Immature Granulocytes # 0.020 0.010 Neutrophils # 3.0 1.9 Lymphocytes # 1.7 1.9 Monocytes # 0.6 0.8 Eosinophils # 0.0 0.1 Basophils # 0.0 0.0 Nucleated Red Blood Cells # 0.0 0.0 Urine Color YELLOW Urine Clarity SLIGHTLY CLOUDY A Urine pH 8.0 Urine Specific [place] 1.010 Urine Ketones 1+ H Urine Nitrite NEGATIVE Urine Bilirubin NEGATIVE Urine Urobilinogen NEGATIVE Urine Leukocyte Esterase NEGATIVE Urine Microscopic RBC 6 H Urine Microscopic WBC 2 Urine Squamous Epithelial Cells MODERATE Urine Bacteria FEW A Urine Hemoglobin NEGATIVE Urine Glucose NEGATIVE Urine Total Protein NEGATIVE Sodium Level 140 140 Potassium Level 4.3 4.1 Chloride Level 102 107 Carbon Dioxide Level 25 25 Anion Gap 13 8 Blood Urea Nitrogen 9 8 Creatinine 0.67 0.67 Est Glomerular Filtrat > 60 > 60 Rate mL/min Glucose Level 89 76 Calcium Level 10.2 9.0 Total Bilirubin 0.4 0.4 Direct Bilirubin 0.00 0.00 Indirect Bilirubin 0.4 0.4 Aspartate Amino 410 H 306 H Transf (AST/SGOT) Alanine 546 H 431 H Aminotransferase (ALT/SGPT) Alkaline Phosphatase 98 73 Total Protein 9.3 H 7.2 # Albumin 4.8 3.8 # Globulin 4.50 H 3.40 H Albumin/Globulin Ratio 1.06 1.11 Lipase 82 POC Beta HCG, Qualitative NEGATIVE Hemoglobin A1c 4.9 Magnesium Level 2.1 Triglycerides Level 63 Cholesterol Level 124 LDL Cholesterol, Calculated 58 HDL Cholesterol 53 Cholesterol/HDL Ratio 2.3 Thyroid Stimulating Pending Hormone (TSH) Hepatitis B Surface Antigen NEGATIVE Hepatitis B Core Total Antibody NEGATIVE Hepatitis C Antibody NEGATIVE Medications Medication Current Medications Ketorolac Tromethamine (Toradol) 30 mg ER BRIDGE PRN IV .PAIN; Start 01/16/19 at 21:30; Stop 01/17/19 at 21:29 Ondansetron HCl (Zofran Inj) 4 mg BRIDGE ORDER PRN IV NAUSEA/VOMITING; Start 01/16/19 at 21:30; Stop 01/17/19 at 21:29 Acetaminophen (Tylenol Tab) 650 mg ER BRIDGE PRN PO .MILD PAIN 1-3 OR TEMP Last administered on 01/17/19at 01:36; Admin Dose 650 MG; Start 01/16/19 at 21:30; Stop 01/17/19 at 21:29 Sodium Chloride 1,000 ml @ 100 mls/hr Q10H IV Last administered on 01/17/19at 01:36; Admin Dose 100 MLS/HR; Start 01/17/19 at 00:00 IV Flush (NS 3 ml) 3 ml PER PROTOCOL IV ; Start 01/16/19 at 22:00 Ondansetron HCl (Zofran Inj) 4 mg Q6H PRN IV NAUSEA/VOMITING Last administered on 01/17/19at 08:06; Admin Dose 4 MG; Start 01/16/19 at 22:00 Acetaminophen (Tylenol Tab) 650 mg Q6H PRN PO .PAIN 1-3 OR TEMP; Start 01/16/19 at 22:00 Hydromorphone HCl (Dilaudid) 0.5 mg Q4H PRN IV .SEVERE PAIN 7-10 Last administered on 01/17/19at 05:59; Admin Dose 0.5 MG; Start 01/16/19 at 22:00 Docusate Sodium (Colace) 100 mg Q12H PRN PO .CONSTIPATION; Start 01/16/19 at 22:00 Bisacodyl (Dulcolax) 5 mg DAILY PRN PO .CONSTIPATION; Start 01/16/19 at 22:00 Ciprofloxacin/ Dextrose 200 ml @ 200 mls/hr Q12 IVPB Last administered on 01/17/19at 08:06; Admin Dose 200 MLS/HR; Start 01/17/19 at 09:00 Metronidazole 100 ml @ 100 mls/hr Q6 IVPB Last administered on 01/17/19at 05:53; Admin Dose 100 MLS/HR; Start 01/17/19 at 00:00 Pantoprazole (Protonix Iv) 40 mg DAILY@06 IV Last administered on 01/17/19at 05:53; Admin Dose 40 MG; Start 01/17/19 at 00:30 Sucralfate (Carafate) 1 gm Q6 PO Last administered on 01/17/19at 05:54; Admin Dose 1 GM; Start 01/17/19 at 00:30; Stop 01/18/19 at 00:29 JULIEN BABIN NP Jan 17, 2019 10:38
[2019-01-17 14:59] VITALS: BP 106/57; PULSE 93; RESP 18
[2019-01-17] MEDS: ONDANSETRON 4 MG INJ IV PRN (17:04)
[2019-01-17 20:05] VITALS: BP 102/62; PULSE 81; RESP 20
[2019-01-18] VITALS (25 sets, daily range): BP systolic 102–130; BP diastolic 60–72; PULSE 66–84; RESP 16–22
[2019-01-18] MEDS: SUCRALFATE 1 GM TAB PO SCH
[2019-01-18] MEDS: SOD CHLORIDE 0.9% 1,000 ML IV SCH ×3 (00:55→19:20)
[2019-01-18] MEDS: metroNIDAZOLE 500 MG/NS (PMX) 100 ML IVPB SCH ×3 (06:00→18:24)
[2019-01-18] MEDS: PANTOPRAZOLE 40 MG INJ IV SCH (06:15)
[2019-01-18] MEDS ORDERED: BUPIVACAINE 0.5%/EPI (SDV) 30 ML INJ ONE (06:39)
[2019-01-18] MEDS ORDERED: LIDOCAINE 2% (MDV) 20 ML INJ ONE (06:59)
[2019-01-18] MEDS ORDERED: CIPRO 400 MG/200 ML D5W IVPB ONE (07:00)
[2019-01-18] MEDS ORDERED: metroNIDAZOLE 500 MG/100 ML NS IVPB ONE (07:00)
[2019-01-18] MEDS ORDERED: NEOSTIGMINE 10 MG INJ ONE (07:00)
[2019-01-18] MEDS ORDERED: TRAM50TA PO (07:06)
--- NOTE | 2019-01-18 07:22 | PREAC ---
Date/Time of Note Date/Time of Note DATE: 01/18/19 TIME: 07:18 Anesthesia Eval and Record Evaluation Time Pre-Procedure Interview DATE: 01/18/19 TIME: 07:18 Age 28 Sex female NPO: 8 hrs Preoperative diagnosis SYMPTOMATIC CHOLELITHIASIS Planned procedure LAP MEGAN Past Medical History Past Medical History: Includes Endo: Diabetes Surgery & Anesthesia Issues No known issue Meds Anticoagulation: No Beta Carrington within 24 hr: No Reason Beta Carrington not given: Pt. not on B-Carrington Reported Medications Tramadol Hcl* (Ultram*) 50 Mg Tablet, 50 MG PO DAILY PRN for PAIN, TAB 01/18/19 Discontinued Reported Medications [ Control] No Conflict Check 05/04/10 Discontinued Scripts Metronidazole* (Flagyl*) 500 Mg Tablet, 500 MG PO BID for 7 Days, TAB Prov:ROBB NAQVI PA-C 07/12/16 Naproxen* (Naprosyn*) 500 Mg Tablet, 500 MG PO BID, #30 TAB Prov:ROBB NAQVI PA-C 07/12/16 Acetaminophen-Codeine* (Acetaminophen-Cod #3*) 300-30 Mg Tab, 1 TAB PO Q4H PRN for PAIN, #10 TAB Prov:DANIELLE LOPEZ MD 03/24/16 Cephalexin* (Keflex*) 500 Mg Capsule, 500 MG PO QID for 5 Days, CAP Prov:FIORDALIZA CARO DO 03/19/16 Acetaminophen* (Tylenol*) 325 Mg Tablet, 2 TAB PO Q8 PRN for PAIN AND OR ELEVATED TEMP, #10 TAB Prov:FIORDALIZA CARO DO 03/19/16 Current Medications Sodium Chloride 1,000 ml @ 100 mls/hr Q10H IV Last administered on 01/18/19at 00:55; Admin Dose 100 MLS/HR; Start 01/17/19 at 00:00 IV Flush (NS 3 ml) 3 ml PER PROTOCOL IV ; Start 01/16/19 at 22:00 Acetaminophen (Tylenol Tab) 650 mg Q6H PRN PO .PAIN 1-3 OR TEMP; Start 01/16/19 at 22:00 Hydromorphone HCl (Dilaudid) 0.5 mg Q4H PRN IV .SEVERE PAIN 7-10 Last administered on 01/17/19at 17:03; Admin Dose 0.5 MG; Start 01/16/19 at 22:00 Docusate Sodium (Colace) 100 mg Q12H PRN PO .CONSTIPATION; Start 01/16/19 at 22:00 Bisacodyl (Dulcolax) 5 mg DAILY PRN PO .CONSTIPATION; Start 01/16/19 at 22:00 Ciprofloxacin/ Dextrose 200 ml @ 200 mls/hr Q12 IVPB Last administered on 01/17/19at 21:10; Admin Dose 200 MLS/HR; Start 01/17/19 at 09:00 Metronidazole 100 ml @ 100 mls/hr Q6 IVPB Last administered on 01/17/19at 23:53; Admin Dose 100 MLS/HR; Start 01/17/19 at 00:00 Pantoprazole (Protonix Iv) 40 mg DAILY@06 IV Last administered on 01/18/19at 06:15; Admin Dose 40 MG; Start 01/17/19 at 00:30 Ondansetron HCl (Zofran Inj) 4 mg Q4H PRN IV NAUSEA/VOMITING Last administered on 01/17/19at 17:04; Admin Dose 4 MG; Start 01/17/19 at 14:00 Meds reviewed: Yes Allergies Coded Allergies: ceftriaxone (Verified Allergy, Severe, SOB,chest tightness, 01/18/19) PER PT Allergies Reviewed: Yes Labs/Studies Labs Reviewed: Reviewed by anesthesiologist Result Diagram: 01/18/192 01/18/19441 Laboratory Tests 01/18/19 04:42 test: Negative Pre-procedure Exam Last vitals Vital Signs Date Temp Pulse Resp B/P (MAP) Pulse Ox O2 O2 Flow FiO2 Time Delivery Rate 01/18/19 98.0 78 17 106/61 96 01:50 (76) 01/17/19 Room Air 00:53 Airway: Adequate mouth opening, Adequate thyromental dist Mallampati: Mallampati II Teeth: Normal Lung: Normal Heart: Normal ASA Physical Status ASA physical status: 2 Emergency: None Planned Anesthetic General/MAC: ETT Nerve block: TAP (bilateral) Planned Pain Management Parenteral pain med Pre-operative Attestations Prior to commencing anesthesia and surgery, the patient was re-evaluated, there was verification of: *The patient's identity *The results of appropriate recent lab work and preoperative vital signs *The above evaluation not changing prior to induction *Anesthetic plan, risk benefits, alternative and complications discussed with patient/family; questions answered; patient/family understands, accepts and wish es to proceed. Soy Monsalve M.D. Jan 18, 2019 07:22
[2019-01-18] MEDS ORDERED: LABETALOL HCL 20MG INJ IV PRN (07:30)
[2019-01-18] MEDS ORDERED: IPRATROPIUM (NEB) 0.5 MG/2.5 ML AMP HHN PRN (07:30)
[2019-01-18] MEDS ORDERED: GLYCOPYRROLATE 0.4 MG INJ ONE (07:30)
[2019-01-18] MEDS ORDERED: MIDAZOLAM 1 MG/ML 2 ML INJ IV PRN (07:30)
[2019-01-18] MEDS ORDERED: MEPERIDINE 25 MG INJ IV PRN (07:30)
[2019-01-18] MEDS ORDERED: ROCURONIUM 50 MG INJ ONE (07:30)
[2019-01-18] MEDS ORDERED: EPHEDrine SULFATE 50 MG/5 ML SYG IV PRN (07:30)
[2019-01-18] MEDS ORDERED: ALBUTEROL 0.083% (NEB) 2.5 MG/3 ML AMP HHN PRN (07:30)
[2019-01-18] MEDS ORDERED: DIPHENHYDRAMINE 50 MG INJ IV PRN (07:30)
[2019-01-18] MEDS ORDERED: hydrALAzine 20 MG INJ IV PRN (07:30)
[2019-01-18] MEDS ORDERED: ONDANSETRON 4 MG INJ IV PRN (07:30)
[2019-01-18] MEDS ORDERED: PROPOFOL 20 ML ONE (07:30)
[2019-01-18] MEDS ORDERED: TRIMETHOBENZAMIDE 100 MG/ML VIAL IM PRN (07:30)
[2019-01-18] MEDS ORDERED: OXYCODONE/ACETAMINOPHEN (5/325) TAB PO PRN ×2 (07:30)
[2019-01-18] MEDS ORDERED: FENTAnyl 50 MCG/ML VIAL IV PRN ×3 (07:30)
[2019-01-18] MEDS ORDERED: HYDROmorphONE 1 MG/5 ML IV SYRINGE IV PRN ×3 (07:30)
[2019-01-18] MEDS ORDERED: CEFAZOLIN 1 GM INJ ONE (07:30)
[2019-01-18] MEDS ORDERED: FENTAnyl 50 MCG/ML VIAL ONE ×2 (07:32→08:11)
[2019-01-18] MEDS ORDERED: MIDAZOLAM 1 MG/ML 2 ML INJ ONE (07:32)
[2019-01-18] MEDS ORDERED: ONDANSETRON 4 MG INJ ONE (07:33)
[2019-01-18] MEDS ORDERED: DEXAMETHASONE 4 MG/ML 5 ML INJ ONE (07:33)
[2019-01-18] MEDS ORDERED: ROPIVACAINE 0.5 % 30 ML VIAL ONE (07:33)
[2019-01-18] MEDS: CIPROFLOXACIN 400MG/D5W 200 ML IVPB SCH ×2 (09:00→21:37)
--- NOTE | 2019-01-18 09:39 | OPR ---
Date/Time of Note Date/Time of Note DATE: 01/18/19 TIME: 09:34 Operative Report Free Text/Dictation Operative report Procedure Date: Jan 18, 2019 Preoperative Diagnosis Cholecystitis, cholelithiasis Postoperative Diagnosis Same Operation/Procedure Performed Lap scopic cholecystic Surgeon Sulema Houser MD see signature line Sewage Disposal Worker None Anesthesia Type: general Anesthesiologist: Soy Monsalve M.D. Estimated Blood Loss: 0 - 10 ml's Transfusion none Specimen Gallbladder Grafts/Implants none Tubes/Drains None Complications none Pt Condition Post Procedure: stable Disposition: PACU Indications Epigastric right upper quadrant abdominal pain elevated LFTs normal MRCP large gallstone symptoms and findings felt secondary to cholecystitis and cholelithiasis patient was advised to undergo and agreed to proceed with laparoscopic cholecystectomy risk benefits alternatives were discussed patient is scheduled for surgery Procedure Description Patient brought to the operating placed in supine position general she is administered with intubation patient prepped draped in sterile fashion orogastric tube inserted by anesthesia A timeout was completed standard a tap block was performed by anesthesia. An orogastric was inserted a varies needle was used at the left upper quadrant Carpenter's point insufflation delivered to maintain pneumoperitoneum 50 was mercury throughout the procedure course of Marcaine was used to infiltrate all trocar sites. Her graph small stab incision made 4 cm cephalad of the umbilicus because the patient's large habitus and a 5 mm trocar was inserted under direct visualization with a 30 degrees femoral laparoscope the varies needle area was inspected showing no injuries Veress needle was removed and an epigastric 5 mm trocar 2 right-sided 5 Neal trochars were inserted next the supra umbilical tr ocar was exchanged for an 11 mm trocar. Patient was placed in head upright side up position a Cuco's arm retractor was placed at the right side of the operative table. Fundus of the gallbladder was grasped with an atraumatic grasper and the gallbladder was retracted up over the edge of the right lobe of the liver there were adhesions along the body neck of the gallbladder these were carefully taken down with hook cautery and suction irrigation and [place] dissection the critical view was maintained the cystic artery was skeletonized and 2 clips were placed in the patient's eye when the gallbladder side and divided cystic duct was then skeletonized 2 clips placed on the patient's side one the gallbladder side and divided the gallbladder was carefully taken off the liver bed there is a small accessory artery by the bed of the gallbladder fossa which was controlled with clips. The gallbladder was then taken off the liver bed hemostasis was well controlled. A specimen bag was then inserted through the umbilical port and the gallbladder placed in this and brought through that wound. Final inspection and irrigation showed no bleeding all of delivered fluid was aspirated a port site closure device with cone and 0 Ethibond suture was used to close the 11 mm port. The pneumoperitoneum was allowed to escape all trochars removed skin incisions closed with 4-0 Monocryl and Dermabond for d ressing. Sponge needle count correct x2. Patient was explained the operative brought recovery in stable condition. SULEMA HOUSER MD Jan 18, 2019 09:39
[2019-01-18] MEDS: D5W-0.45 NACL + KCL 20 MEQ 1,000 ML IV SCH ×2 (10:57→22:01)
[2019-01-18] MEDS: IBUPROFEN 600 MG TAB PO PRN ×2 (12:13→18:24)
[2019-01-18] MEDS: ONDANSETRON 4 MG INJ IV PRN (12:13)
--- NOTE | 2019-01-18 12:26 | PN ---
Date/Time of Note Date/Time of Note DATE: 01/18/19 TIME: 12:23 Assessment/Plan VTE Prophylaxis Risk score (from Ns)>0 risk: 1 SCD applied (from Nsg): Yes Pharmacological prophylaxis: NA/contraindicated Pharm contraindication: low risk/ambulating Lines/Catheters IV C[facility]from [facility] Saline Lock Assessment/Plan Hospital Course SUBJECTIVE: Status post laparoscopic cholecystectomy today. OBJECTIVE: Physical Exam General: Adequately build 28 year-old female lying in bed in no apparent distress. HEENT: Normocephalic, atraumatic. Eyes: Anicteric sclerae, conjunctivae clear. ENT: Nasal septum midline, oral mucosa moist. Neck supple, no JVD noticed. Respiratory: Bilaterally clear breath sounds. No use of accessory muscles of re spiration. No adventitious breath sounds. Cardiovascular: S1, S2 heard. Regular rate and rhythm. Abdomen: Soft and nondistended. Incision sites clean. Genitourinary: Deferred. Extremities: No cyanosis, no clubbing, no edema. Peripheral pulses palpable. Neurologic: Cranial nerves II through XII grossly intact. The patient is awake, alert, and oriented. Skin: Normal skin turgor. No skin rashes. Labs & Vitals per chart ASSESSMENT & PLAN 28-year-old female with comorbidities including obesity and diabetes currently off medications because of normal A1c. She came to the emergency room with chief complaint of epigastric pain for 3 days. The patient also verbalized bilious vomiting. The patient underwent a gallbladder ultrasound that showed a large 2 cm gallstone in the neck of the gallbladder with borderline thickening of the gallbladder wall. The patient underwent an MRCP that was negative for any choledocholithiasis. The patient was admitted to inpatient setting for further treatment and evaluation. 1. Symptomatic cholelithiasis; Acute cholecystitis. -Status post laparoscopic cholecystectomy on 01/18/2019. -Continue analgesics. -Advancement of diet as per surgery. -Encourage incentive spirometry and frequent ambulation. 2. Transaminitis without hyperbilirubinemia. -Most probably secondary to #1. -Management as per #1. -Hepatitis panel negative. 3. Prior history of diabetes mellitus -Current A1c 4.9. 4. Migraine headache. -PRN analgesics. 5. Obesity. -BMI 30. -Advised weight reduction. 6. Fluids, electrolytes, and nutrition. - Advancement of diet as per surgery. 7. DVT prophylaxis. -Bilateral SCDs. 8. Plan. -Continue pain control. -Continue IV fluids. -Continue antibiotics. -Encourage frequent ambulation and use of incentive spirometry The patient was seen in collaboration with Dr. Garrison. Result Diagram: 01/18/192 01/18/192 Results 24hrs Laboratory Tests Test 01/18/19 04:42 White Blood Count 4.3 L Red Blood Count 4.23 Hemoglobin 12.4 Hematocrit 36.7 L Mean Corpuscular Volume 86.8 Mean Corpuscular Hemoglobin 29.3 Mean Corpuscular Hemoglobin Concent 33.8 Red Cell Distribution Width 12.6 Platelet Count 238 Mean Platelet Volume 9.4 Immature Granulocytes % 0.200 Neutrophils % 45.8 Lymphocytes % 32.6 Monocytes % 17.9 H Eosinophils % 2.3 Basophils % 1.2 Nucleated Red Blood Cells % 0.0 Immature Granulocytes # 0.010 Neutrophils # 2.0 Lymphocytes # 1.4 Monocytes # 0.8 Eosinophils # 0.1 Basophils # 0.1 Nucleated Red Blood Cells # 0.0 Sodium Level 139 Potassium Level 4.3 Chloride Level 105 Carbon Dioxide Level 25 Anion Gap 9 Blood Urea Nitrogen 6 L Creatinine 0.69 Est Glomerular Filtrat Rate mL/min > 60 Glucose Level 74 Calcium Level 8.9 Phosphorus Level 4.4 Magnesium Level 1.8 Total Bilirubin 0.6 Direct Bilirubin 0.00 Indirect Bilirubin 0.6 Aspartate Amino Transf (AST/SGOT) 255 H Alanine Aminotransferase (ALT/SGPT) 409 H Alkaline Phosphatase 66 Total Protein 7.2 Albumin 3.6 Globulin 3.60 H Albumin/Globulin Ratio 1.00 Exam/Review of Systems Exam Vitals Vital Signs Date Temp Pulse Resp B/P (MAP) Pulse Ox O2 O2 Flow FiO2 Time Delivery Rate 01/18/19 98.3 70 18 112/70 99 Room Air 10:25 (84) Intake and Output 01/17/19 01/17/19 01/18/19 1515:00 23:00 07:00 IntakeIntake Total 1400 ml 840 ml 700 ml BalanceBalance 1400 ml 840 ml 700 ml Results Results 24hrs Laboratory Tests Test 01/18/19 04:42 White Blood Count 4.3 L Red Blood Count 4.23 Hemoglobin 12.4 Hematocrit 36.7 L Mean Corpuscular Volume 86.8 Mean Corpuscular Hemoglobin 29.3 Mean Corpuscular Hemoglobin Concent 33.8 Red Cell Distribution Width 12.6 Platelet Count 238 Mean Platelet Volume 9.4 Immature Granulocytes % 0.200 Neutrophils % 45.8 Lymphocytes % 32.6 Monocytes % 17.9 H Eosinophils % 2.3 Basophils % 1.2 Nucleated Red Blood Cells % 0.0 Immature Granulocytes # 0.010 Neutrophils # 2.0 Lymphocytes # 1.4 Monocytes # 0.8 Eosinophils # 0.1 Basophils # 0.1 Nucleated Red Blood Cells # 0.0 Sodium Level 139 Potassium Level 4.3 Chloride Level 105 Carbon Dioxide Level 25 Anion Gap 9 Blood Urea Nitrogen 6 L Creatinine 0.69 Est Glomerular Filtrat Rate mL/min > 60 Glucose Level 74 Calcium Level 8.9 Phosphorus Level 4.4 Magnesium Level 1.8 Total Bilirubin 0.6 Direct Bilirubin 0.00 Indirect Bilirubin 0.6 Aspartate Amino Transf (AST/SGOT) 255 H Alanine Aminotransferase (ALT/SGPT) 409 H Alkaline Phosphatase 66 Total Protein 7.2 Albumin 3.6 Globulin 3.60 H Albumin/Globulin Ratio 1.00 Medications Medication Current Medications Sodium Chloride 1,000 ml @ 100 mls/hr Q10H IV Last administered on 01/18/19at 00:55; Admin Dose 100 MLS/HR; Start 01/17/19 at 00:00 IV Flush (NS 3 ml) 3 ml PER PROTOCOL IV ; Start 01/16/19 at 22:00 Acetaminophen (Tylenol Tab) 650 mg Q6H PRN PO .PAIN 1-3 OR TEMP; Start 01/16/19 at 22:00 Hydromorphone HCl (Dilaudid) 0.5 mg Q4H PRN IV .SEVERE PAIN 7-10 Last administered on 01/17/19at 17:03; Admin Dose 0.5 MG; Start 01/16/19 at 22:00 Docusate Sodium (Colace) 100 mg Q12H PRN PO .CONSTIPATION; Start 01/16/19 at 22:00 Bisacodyl (Dulcolax) 5 mg DAILY PRN PO .CONSTIPATION; Start 01/16/19 at 22:00 Ciprofloxacin/ Dextrose 200 ml @ 200 mls/hr Q12 IVPB Last administered on 01/17/19at 21:10; Admin Dose 200 MLS/HR; Start 01/17/19 at 09:00 Metronidazole 100 ml @ 100 mls/hr Q6 IVPB Last administered on 01/18/19 12:13; Admin Dose 100 MLS/HR; Start 01/17/19 at 00:00 Pantoprazole (Protonix Iv) 40 mg DAILY@06 IV Last administered on 01/18/19 06:15; Admin Dose 40 MG; Start 01/17/19 at 00:30 Ondansetron HCl (Zofran Inj) 4 mg Q4H PRN IV NAUSEA/VOMITING Last administered on 01/18/19 12:13; Admin Dose 4 MG; Start 01/17/19 at 14:00 Hydromorphone HCl (Dilaudid) 0.2 mg PACU PRN IV MILD PAIN 1-3; Start 01/18/19 at 07:30; Stop 01/18/19 at 18:00 Hydromorphone HCl (Dilaudid) 0.4 mg PACU PRN IV MOD PAIN 4-6 Last administered on 01/18/19 09:49; Admin Dose 0.4 MG; Start 01/18/19 at 07:30; Stop 01/18/19 at 18:00 Hydromorphone HCl (Dilaudid) 0.6 mg PACU PRN IV SEVERE PAIN 7-10 Last administered on 01/18/19 09:41; Admin Dose 0.6 MG; Start 01/18/19 at 07:30; Stop 01/18/19 at 18:00 Fentanyl (Sublimaze) 25 mcg PACU ORDER PRN IV MILD PAIN 1-3; Start 01/18/19 at 07:30; Stop 01/18/19 at 18:00 Fentanyl (Sublimaze) 50 mcg PACU ORDER PRN IV MOD PAIN 4-6; Start 01/18/19 at 07:30; Stop 01/18/19 at 18:00 Fentanyl (Sublimaze) 75 mcg PACU ORDER PRN IV SEVERE PAIN 7-10; Start 01/18/19 at 07:30; Stop 01/18/19 at 18:00 Oxycodone/ Acetaminophen (Percocet (5/ 325)) 1 tab PACU ORDER PRN PO .PAIN 1-5; Start 01/18/19 at 07:30; Stop 01/18/19 at 18:00 Oxycodone/ Acetaminophen (Percocet (5/ 325)) 2 tab PACU ORDER PRN PO .PAIN 6-10; Start 01/18/19 at 07:30; Stop 01/18/19 at 18:00 Ondansetron HCl (Zofran Inj) 4 mg PACU ORDER PRN IV NAUSEA/VOMITING Last administered on 01/18/19at 09:40; Admin Dose 4 MG; Start 01/18/19 at 07:30; Stop 01/18/19 at 18:00 Trimethobenzamide HCl (Tigan) 200 mg PACU ORDER PRN IM NAUSEA/VOMITING; Start 01/18/19 at 07:30; Stop 01/18/19 at 18:00 Labetalol HCl (Labetalol) 5 mg PACU ORDER PRN IV HIGH BLOOD PRESSURE; Start 01/18/19 at 07:30; Stop 01/18/19 at 18:00 Hydralazine HCl (Apresoline) 5 mg PACU ORDER PRN IV HIGH BLOOD PRESSURE; Start 01/18/19 at 07:30; Stop 01/18/19 at 18:00 Ephedrine Sulfate 5 mg PACU ORDER PRN IV BLOOD PRESSURE SUPPORT; Start 01/18/19 at 07:30; Stop 01/18/19 at 18:00 Albuterol (Proventil 0.083% (Neb)) 2.5 mg PACU ORDER PRN HHN .WHEEZING; Start 01/18/19 at 07:30; Stop 01/18/19 at 18:00 Ipratropium [place] (Atrovent 0.02% (Neb)) 0.5 mg PACU ORDER PRN HHN .WHEEZING; Start 01/18/19 at 07:30; Stop 01/18/19 at 18:00 Meperidine HCl (Demerol) 25 mg PACU ORDER PRN IV .RIGORS Last administered on 01/18/19at 09:40; Admin Dose 25 MG; Start 01/18/19 at 07:30; Stop 01/18/19 at 18:00 Diphenhydramine HCl (Benadryl) 25 mg PACU ORDER PRN IV .PRURITUS; Start 01/18/19 at 07:30; Stop 01/18/19 at 18:00 Midazolam HCl (Versed) 0.5 mg PACU ORDER PRN IV .ANXIETY; Start 01/18/19 at 07:30; Stop 01/18/19 at 18:00 Ibuprofen (Motrin) 600 mg Q6H PRN PO PAIN LEVEL 1-5 Last administered on 01/18/19at 12:13; Admin Dose 600 MG; Start 01/18/19 at 10:00 Potassium Chloride/Dextrose/ Sod Cl 1,000 ml @ 100 mls/hr Q10H IV Last administered on 01/18/19at 10:57; Admin Dose 100 MLS/HR; Start 01/18/19 at 09:47 Enoxaparin Sodium (Lovenox) 30 mg DAILY@07 SC ; Start 01/19/19 at 07:00 JULIEN BABIN NP Jan 18, 2019 12:26
--- NOTE | 2019-01-18 12:39 | PAC ---
Date/Time of Note Date/Time of Note DATE: 01/18/19 TIME: 12:39 Post-Anesthesia Notes Post-Anesthesia Note Last documented vital signs Vital Signs Date Temp Pulse Resp B/P (MAP) Pulse Ox O2 O2 Flow FiO2 Time Delivery Rate 01/18/19 98.3 70 18 112/70 99 Room Air 10:25 (84) Activity: WNL Respiratory function: WNL Cardiovascular function: WNL Mental status: Baseline Pain reasonably controlled: Yes Hydration appropriate: Yes Nausea/Vomiting absent: Yes Soy Monsalve M.D. Jan 18, 2019 12:39
[2019-01-18] MEDS: HYDROmorphONE 0.5 MG/0.5 ML SYG IV PRN ×3 (14:16→22:26)
[2019-01-19] MEDS: metroNIDAZOLE 500 MG/NS (PMX) 100 ML IVPB SCH ×3 (00:57→12:00)
[2019-01-19] MEDS: morphine 4 MG/ML VIAL IV PRN ×3 (01:10→11:02)
[2019-01-19] MEDS: SOD CHLORIDE 0.9% 1,000 ML IV SCH ×2 (01:10→12:00)
[2019-01-19] MEDS: IBUPROFEN 600 MG TAB PO PRN (01:11)
[2019-01-19] MEDS: PANTOPRAZOLE 40 MG INJ IV SCH (05:39)
[2019-01-19] MEDS: D5W-0.45 NACL + KCL 20 MEQ 1,000 ML IV SCH ×2 (05:39→15:47)
[2019-01-19] MEDS ORDERED: ENOXAPARIN 30 MG/0.3 ML SYG SC SCH (07:00)
[2019-01-19 07:55] VITALS: BP 97/62; PULSE 69; RESP 18
[2019-01-19] MEDS: CIPROFLOXACIN 400MG/D5W 200 ML IVPB SCH (08:56)
[2019-01-19] MEDS ORDERED: HYDR-4011 PO (09:57)
[2019-01-19] MEDS ORDERED: DOCU-144 PO (10:00)
[2019-01-19] MEDS ORDERED: SIME180C39 PO (10:00)
--- NOTE | 2019-01-19 10:04 | PDOCDIS ---
Discharge Instructions CONDITION [id number] Patient Condition: [id number] Stable HOME CARE INSTRUCTIONS: [id number] Diet Instructions: [id number] Low Fat /Cholesterol ACTIVITY: [id number] Activity Restrictions: [id number] Slowly Increase Activity Rest between Activity [id number] Bathing Restrictions: Sonjo0h Tub Bath [id number] Activity Restrictions [id number] Do not soak or scrub incision Comment: FOLLOW UP/APPOINTMENTS Follow-up Plan Cash Houser MD Specialty: General Surgery Office Address [address] [place] [address]. [address] [place] [address] Office OTHER ORDERS: Other Orders: 1. Low cholesterol, low carbohydrate diet as tolerated. 2. Keep incisions clean and dry. May shower. Avoid tub baths and swimming for 2 weeks. Use mild soap and pat dry the incisions. 3. Take medications as needed for pain. 4. Call the surgeon or go to the nearest ER if you have severe abdominal pain despite pain medications. 5. Call the surgeon or go to the nearest ER if you notice any bleeding or secretions coming out of the incision sites. Also call the surgeon if you notice any blood in stool, if you have persistent fevers, or any other unusual signs or symptoms. 6. Follow-up with the surgeon Dr. Houser in 7 days for incision check. 7. Avoid heavy lifting [more than 15 pounds] for 4 weeks. JULIEN BABIN NP Jan 19, 2019 10:04
[2019-01-19] MEDS ORDERED: Work Note (10:06)
--- NOTE | 2019-01-19 10:13 | DS ---
Date/Time of Note Date/Time of Note DATE: 01/19/19 TIME: 10:10 Discharge Summary Admission/Discharge Info Admit Date/Time Jan 16, 2019 at 21:29 Discharge Date/Time Discharge Diagnosis 1. Symptomatic cholelithiasis; Acute cholecystitis. Status post laparoscopic c holecystectomy on 01/18/2019. 2. Transaminitis without hyperbilirubinemia. 3. Prior history of diabetes mellitus. Current A1c 4.9. 4. Migraine headache. 5. Obesity. BMI 30. Patient Condition: Stable Consults 1. Cash Houser MD, General Surgery. Procedures Operative Report Free Text/Dictation Operative report Procedure Date: Jan 18, 2019 Preoperative Diagnosis Cholecystitis, cholelithiasis Postoperative Diagnosis Same Operation/Procedure Performed Lap scopic cholecystic Surgeon Cash Houser MD MRCP IMPRESSION: There is cholelithiasis with multiple gallstones in the gallbladder including in the gallbladder neck region. No choledocholithiasis or biliary dilatation is seen. Hx of Present Illness This is a 28-year-old female with comorbidities including obesity and diabetes currently off medications because of normal A1c. She came to the emergency room with chief complaint of epigastric pain for 3 days. The patient also verbalized bilious vomiting. The patient underwent a gallbladder ultrasound that showed a large 2 cm gallstone in the neck of the gallbladder with borderline thickening of the gallbladder wall. The patient underwent an MRCP that was negative for any choledocholithiasis. The patient was admitted to inpatient setting for further treatment and evaluation. Hospital Course The patient was admitted to inpatient setting. The patient was kept n.p.o. She was started on empiric antimicrobials. She was maintained on IV fluids. A general surgery consult was obtained. The patient underwent an MRCP that was negative for any choledocholithiasis. The patient was taken to the OR on 01/18/2019 and the patient underwent a laparoscopic cholecystectomy for underlying acute cholecystitis. Status post lap cholecystectomy, the patient was started on a clear liquid diet and the diet was advanced as tolerated to a regular consistency diet without any significant gastrointestinal symptoms. The patient was encouraged in the use of incentive spirometry and was encouraged to frequently ambulate. The patient started passing gas. The patient was cleared by general surgery to be discharged home. The patient was noted to have transaminitis without hyperbilirubinemia, probably secondary to underlying cholecystitis. The patient's transaminitis improved with the surgical resection of the gallbladder. The patient's hepatitis panel was negative. The patient has prior history of diabetes mellitus. The patient's current hemoglobin A1c is a 4.9. The patient has a history of migraine headaches. The patient was maintained on PRN analgesics for any episodes of migraine. The patient is also obese with a BMI of 30 kg/m. The patient was advised on weight reduction. The patient's fasting lipid panel was optimal. The patient had a stable hospital course. The patient is stable to be discharged home. Discharge Instructions 1. Low cholesterol, low carbohydrate diet as tolerated. 2. Keep incisions clean and dry. May shower. Avoid tub baths and swimming for 2 weeks. Use mild soap and pat dry the incisions. 3. Take medications as needed for pain. 4. Call the surgeon or go to the nearest ER if you have severe abdominal pain despite pain medications. 5. Call the surgeon or go to the nearest ER if you notice any bleeding or secretions coming out of the incision sites. Also call the surgeon if you notice any blood in stool, if you have persistent fevers, or any other unusual signs or symptoms. 6. Follow-up with the surgeon Dr. Houser in 7 days for incision check. 7. Avoid heavy lifting [more than 15 pounds] for 4 weeks. At this time I would like to thank Dr. Houser for seeing the patient, doing the necessary procedures, and providing clinical recommendations. The patient was seen in collaboration with Dr. Garrison. Home Meds Active Scripts [Work Note] No Conflict Check This is to certify that the patient was admitted to [facility] from 01/16/2019 to 01/19/2019. The patient can return back to work on 01/24/2019 with restriction of no heavy lifting more than 15 pounds until 02/15/2019. Prov:JULIEN BABIN DOCTORATE OF CHIROPRACTIC 01/19/19 Simethicone (Simethicone) 180 Mg Capsule, 180 MG PO Q6H for gas pain, #10 CAP Prov:JULIEN BABIN [employer]IR[employer]RA[employer] 01/19/19 Docusate Sodium* (Colace*) 100 Mg Capsule, 100 MG PO BID, #20 CAP Prov:JULIEN BABIN [employer] CHIR[employer]RA[employer] 01/19/19 Hydrocodone/Acetaminophen ([place] 5-325 Tablet) 1 Each Tablet, 1 EACH PO Q6H for pain, #10 TAB Prov:JULIEN BABIN NP 01/19/19 Discontinued Reported Medications Tramadol Hcl* (Ultram*) 50 Mg Tablet, 50 MG PO DAILY PRN for PAIN, TAB 01/18/19 [ Control] No Conflict Check 05/04/10 Discontinued Scripts Metronidazole* (Flagyl*) 500 Mg Tablet, 500 MG PO BID for 7 Days, TAB Prov:ROBB NAQVIC 07/12/16 Naproxen* (Naprosyn*) 500 Mg Tablet, 500 MG PO BID, #30 TAB Prov:ROBB NAQVI PA-C 07/12/16 Acetaminophen-Codeine* (Acetaminophen-Cod #3*) 300-30 Mg Tab, 1 TAB PO Q4H PRN for PAIN, #10 TAB Prov:DANIELLE LOPEZ MD 03/24/16 Cephalexin* (Keflex*) 500 Mg Capsule, 500 MG PO QID for 5 Days, CAP Prov:FIORDALIZA CARO DO 03/19/16 Acetaminophen* (Tylenol*) 325 Mg Tablet, 2 TAB PO Q8 PRN for PAIN AND OR ELEVATED TEMP, #10 TAB Prov:VANIASAROJFIORDALIZA DO 03/19/16 Follow-up Plan Cash Houesr MD Specialty: General Surgery Office Address [address] [place] [address]. [address] [place] [address] Office Primary Care Provider Not On Staff Doctor Time spent on discharge: > 30 minutes Pending Labs Laboratory Tests Test 01/19/19 04:52 White Blood Count 12.7 10^3/ul (4.8-10.8) Red Blood Count 4.09 10^6/ul (4.20-5.40) Hemoglobin 12.2 g/dl (12.0-16.0) Hematocrit 35.5 % (37.0-47.0) Mean Corpuscular Volume 86.8 fl (82.0-101.0) Mean Corpuscular Hemoglobin 29.8 pg (29.0-33.0) Mean Corpuscular Hemoglobin Concent 34.4 g/dl (32.0-37.0) Red Cell Distribution Width 12.6 % (11.5-14.5) Platelet Count 239 10^3/UL (140-415) Mean Platelet Volume 9.6 fl (7.4-10.4) Immature Granulocytes % 0.600 % (0.001-0.429) Neutrophils % 73.5 % (39.0-77.0) Lymphocytes % 14.4 % (15.0-51.0) Monocytes % 11.3 % (0.0-11.0) Eosinophils % 0.0 % (0.0-7.0) Basophils % 0.2 % (0.0-2.0) Nucleated Red Blood Cells % 0.0 /100WBC (0.0-0.0) Immature Granulocytes # 0.070 10^3/ul (0.0-0.031) Neutrophils # 9.4 10^3/ul (1.6-7.5) Lymphocytes # 1.8 10^3/ul (0.8-2.9) Monocytes # 1.4 10^3/ul (0.3-0.9) Eosinophils # 0.0 10^3/ul (0.0-0.5) Basophils # 0.0 10^3/ul (0.0-0.1) Nucleated Red Blood Cells # 0.0 10^3/ul (0.0-0.0) Sodium Level 140 mmol/L (135-144) Potassium Level 4.1 mmol/L (3.5-5.1) Chloride Level 107 mmol/L (97-110) Carbon Dioxide Level 25 mmol/L (21-31) Anion Gap 8 (5-13) Blood Urea Nitrogen 6 mg/dl (7-20) Creatinine 0.69 mg/dl (0.44-1.00) Est Glomerular Filtrat Rate mL/min > 60 mL/min (>60) Glucose Level 140 mg/dl (70-220) Calcium Level 9.0 mg/dl (8.4-10.2) Phosphorus Level 3.9 mg/dl (2.5-4.9) Magnesium Level 1.8 mg/dl (1.7-2.5) Total Bilirubin 0.2 mg/dl (0.2-1.3) Direct Bilirubin 0.00 mg/dl (0.00-0.20) Indirect Bilirubin 0.2 mg/dl (0-1.1) Aspartate Amino Transf (AST/SGOT) 168 IU/L (15-46) Alanine Aminotransferase (ALT/SGPT) 329 IU/L (13-69) Alkaline Phosphatase 59 IU/L (42-121) Total Protein 6.6 g/dl (6.1-8.1) Albumin 3.3 g/dl (3.3-4.9) Globulin 3.30 g/dl (1.3-3.2) Albumin/Globulin Ratio 1.00 JULIEN BABIN NP Jan 19, 2019 10:13
[2019-01-19] MEDS ORDERED: DIPHENHYDRAMINE 50 MG INJ IV ONE (12:00)
[2019-01-19 13:47] VITALS: BP 112/71; PULSE 81; RESP 18
== END 2019-01-19 16:45 | disposition home or self-care (01) | DRG 419 ==
LOC: FTE 16:10 → MS1 21:29
PROVIDERS: ADMIT Family Medicine; ATTEND Family Medicine
PROC: 0FT44ZZ Resection of Gallbladder, Percutaneous Endoscopic Approach (ICD-10-PCS; principal; 2019-01-18 07:30)
DX: K80.00 Calculus of gallbladder with acute cholecystitis without obstruction (principal); E66.9 Obesity, unspecified; E11.9 Type 2 diabetes mellitus without complications; G43.909 Migraine, unspecified, not intractable, without status migrainosus; Z68.29 Body mass index [BMI] 29.0-29.9, adult
CPT/HCPCS: 36415; 74177; 74181; 76705; 80053; 80061; 81001; 81003; 81025; 83036; 83690; 83735; 84100; 84443; 85025; 86704; 86709; 86803; 87340; 88304; 96374; 96375; 96376; C9113; J0690; J0744; J1100; J1170; J1200; J1650; J2175; J2250; J2270; J2405; J2543; J2710; J2795; J3010; J3480; J7030; Q9967

== ENCOUNTER 2019-01-26 07:55 | Inpatient (IN) | payer MEDICAID ==
[~2019-01-26] VITALS: Ht 170.2 cm; Wt 82.9 kg
[~2019-01-26 07:55] MED LIST changes: -ACET1TAB40 PO; -ACET325T33 PO; -BIRTH CONTROL; -CEPH-443 PO; +DOCU-144 PO; +HYDR-4011 PO; -METR500T PO; -NAPR-985 PO; +SIME180C39 PO; +Work Note
[2019-01-26] MEDS ORDERED: morphine 4 MG/ML VIAL IM STA (08:40)
[2019-01-26] MEDS ORDERED: ONDANSETRON (ODT) 4 MG TAB ODT STA (08:40)
[2019-01-26] MEDS ORDERED: ONDANSETRON 4 MG INJ IV STA (08:52)
[2019-01-26] MEDS ORDERED: SOD CHLORIDE 0.9% 1,000 ML IV STA (08:52)
[2019-01-26] MEDS ORDERED: morphine 4 MG/ML VIAL IV STA ×2 (08:52→11:59)
--- NOTE | 2019-01-26 08:59 | ERD ---
ER Documentation Chief Complaint Chief Complaint ABD PAIN S/P LAP MEGAN 1 WEEK AGO, NO VOMITING, NO FEVER, NO DISTENSION HPI This is a 28-year-old female patient who presents to the emergency room with complaint of 9 out of 10 right upper quadrant pain and cramping. She had a lap cholecystectomy on January [address] Houser. Reports temperature of 99.5 yesterday and nausea starting today, no vomiting, has been having BMs daily. Has appointment to follow-up with Dr. Houser in 4 days. Patient states that she has attempted to call surgeon's office and has not been getting any response and therefore came to the emergency room for assessment. ROS All systems reviewed and are negative except as per history of present illness. Medications Home Meds Active Scripts [Work Note] No Conflict Check This is to certify that the patient was admitted to [facility] from 01/16/2019 to 01/19/2019. The patient can return back to work on 01/24/2019 with restriction of no heavy lifting more than 15 pounds until 02/15/2019. 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 Simethicone (Simethicone) 180 Mg Capsule, 180 MG PO Q6H for gas pain, #10 CAP Prov:JULIEN BABIN NP 01/19/19 Docusate Sodium* (Colace*) 100 Mg Capsule, 100 MG PO BID, #20 CAP 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 Hydrocodone/Acetaminophen ([place] 5-325 Tablet) 1 Each Tablet, 1 EACH PO Q6H for pain, #10 TAB Prov:JULIEN BABIN NP 01/19/19 Discontinued Reported Medications Tramadol Hcl* (Ultram*) 50 Mg Tablet, 50 MG PO DAILY PRN for PAIN, TAB 01/18/19 Allergies Allergies: Coded Allergies: ceftriaxone (Verified Allergy, Severe, SOB,chest tightness, 01/18/19) PER PT PMhx/Soc Medical and Surgical Hx: pt denies Medical Hx History of Surgery: Yes (megan) Anesthesia Reaction: No Hx Neurological Disorder: No Hx Respiratory Disorders: No Hx Cardiac Disorders: No Hx Psychiatric Problems: No Hx Miscellaneous Medical Probl: No Hx Alcohol Use: No Hx Substance Use: No Hx Tobacco Use: No Smoking Status: Never smoker Physical Exam Vitals Vital Signs Date Temp Pulse Resp B/P (MAP) Pulse Ox O2 O2 Flow FiO2 Time Delivery Rate 01/26/19 98.3 82 20 103/60 99 Room Air 11:00 (74) 01/26/19 97.8 91 16 136/75 99 07:59 (95) Physical Exam Const: Patient moving slowly, +discomfort Head: Atraumatic Eyes: Normal Conjunctiva ENT: Normal External Ears, Nose and Mouth. Neck: Full range of motion. No meningismus. Resp: Clear to auscultation bilaterally Cardio: Regular rate and rhythm, no murmurs Abd: Soft, tender to RUQ, +murphys sign, non distended. Normal bowel sounds. 4 incisions intact, surgical glue in place. No redness, no swelling, no drainage at incision sites. Skin: No petechiae or rashes Back: No midline or flank tenderness Ext: No cyanosis, or edema Neur: Awake and alert Psych: Normal Mood and Affect Result Diagram: 01/26/1990101/26/19901 Results 24 hrs Laboratory Tests Test 01/26/19 08:41 01/26/19 08:49 01/26/19 09:02 POC Beta HCG, Qualitative NEGATIVE Bedside Urine pH (LAB) 5.5 Bedside Urine Protein (LAB) Negative Bedside Urine Glucose (UA) Negative Bedside Urine Ketones (LAB) Negative Bedside Urine Blood Trace-intact Bedside Urine Nitrite (LAB) Negative Bedside Urine Leukocyte Esterase Trace (L White Blood Count 5.5 10^3/ul Red Blood Count 4.93 10^6/ul Hemoglobin 14.6 g/dl Hematocrit 43.5 % Mean Corpuscular Volume 88.2 fl Mean Corpuscular Hemoglobin 29.6 pg Mean Corpuscular 33.6 g/dl Hemoglobin Concent Red Cell Distribution Width 12.6 % Platelet Count 257 10^3/UL Mean Platelet Volume 9.3 fl Immature Granulocytes % 0.400 % Neutrophils % 49.6 % Lymphocytes % 33.8 % Monocytes % 14.1 % Eosinophils % 1.6 % Basophils % 0.5 % Nucleated Red Blood Cells % 0.0 /100WBC Immature Granulocytes # 0.020 10^3/ul Neutrophils # 2.7 10^3/ul Lymphocytes # 1.9 10^3/ul Monocytes # 0.8 10^3/ul Eosinophils # 0.1 10^3/ul Basophils # 0.0 10^3/ul Nucleated Red Blood Cells # 0.0 10^3/ul Sodium Level 141 mmol/L Potassium Level 4.2 mmol/L Chloride Level 106 mmol/L Carbon Dioxide Level 23 mmol/L Anion Gap 12 Blood Urea Nitrogen 14 mg/dl Creatinine 0.60 mg/dl Est Glomerular Filtrat Rate mL/min > 60 mL/min Glucose Level 104 mg/dl Calcium Level 9.6 mg/dl Total Bilirubin 0.5 mg/dl Direct Bilirubin 0.00 mg/dl Indirect Bilirubin 0.5 mg/dl Aspartate Amino Transf (AST/SGOT) 315 IU/L Alanine 455 IU/L Aminotransferase (ALT/SGPT) Alkaline Phosphatase 82 IU/L Total Protein 8.6 g/dl Albumin 4.4 g/dl Globulin 4.20 g/dl Albumin/Globulin Ratio 1.04 Lipase 85 U/L Current Medications Medications Dose Sig/Adriana Start Time Status Last (Trade) Ordered Route PRN Stop Time Admin Dose Reason Admin Morphine 4 mg ONCE STAT 01/26/19 DC Sulfate IM 08:40 (morphine) 01/26/19 08:55 Ondansetron 4 mg ONCE STAT 01/26/19 DC HCl (Zofran ODT 08:40 Odt) 01/26/19 08:55 Sodium 1,000 ml @ Q1H STAT 01/26/19 DC 01/26/19 Chloride 1,000 mls/hr IV 08:52 09:05 01/26/19 09:51 Morphine 4 mg ONCE STAT 01/26/19 DC 01/26/19 Sulfate IV 08:52 09:05 (morphine) 01/26/19 08:55 Ondansetron 4 mg ONCE STAT 01/26/19 DC 01/26/19 HCl (Zofran IV 08:52 09:06 Inj) 01/26/19 08:55 IV Flush 10 ml STK-MED 01/26/19 DC (NS 10 ml) ONCE .ROUTE 09:59 01/26/19 10:00 Sodium 100 ml @ ud STK-MED 01/26/19 DC Chloride ONCE .ROUTE 09:59 01/26/19 10:00 Iohexol 150 ml STK-MED 01/26/19 DC (Omnipaque ONCE .ROUTE 09:59 300mg/ ml) 01/26/19 10:00 Procedures/MDM ED COURSE: The patient was stable throughout ED course. I kept the family informed of laboratory and diagnostic imaging results throughout the ED course. 11:30-CT and laboratory results reviewed. Examination concerning for biloma possibly needing drainage. Case reviewed with Dr. Webster. Dr. Houser phone for consult. 11:48: Dr. Houser consulted, ordered HIDA scan and admission with GI consult. 12:00: Informed of decision for admission. Patient understanding and appreciative of investigation and care. Patient complaining of pain returning and radiating into right upper chest. Order placed for additional morphine. Dr. Alegria to admit patient. DIAGNOSTIC IMAGING: PROCEDURE: CT ABDOMEN AND PELVIS WITH IV CONTRAST. CLINICAL INDICATION: Abdominal pain TECHNIQUE: CT scan of the abdomen and pelvis with contrast was performed on a multidetector high-resolution CT scanner following the use of IV contrast. 100 cc Omnipaque-300 was administered. Coronal and sagittal reformatted images were obtained from the axial source images. Images were reviewed on a high-resolution PACS workstation. The total exam CTDI equals 15 mGy and the total exam DLP equals 871 mGy-cm. One or more of the following dose reduction techniques were used: Automated exposure control. Adjustment of the mA and/or kV according to patient size. Use of iterative reconstruction technique. DICOM images are available. COMPARISON: CT 01/16/2019 FINDINGS: CT abdomen: The lung bases are clear. The heart size is within normal limits. There is no significant pericardial effusion. Hepatic morphology is within normal limits. No gross contour deforming masses. The gallbladder is not visualized. Small amount of fluid is noted within the gallbladder fossa.. No evidence of intrahepatic or extrahepatic biliary dilatation. The spleen and pancreas are within normal limits. Both adrenal glands are within normal limits. Both kidneys are and normal anatomic position. There is a 3.4 mm nonobstructing stone within the mid pole right kidney. No evidence of obstructive uropathy. The visualized GI tract demonstrate normal caliber loops of small and large bowel. No evidence of bowel obstruction. The appendix is within normal limits. The aorta is unremarkable. No significant retroperitoneal lymphadenopathy. CT pelvis: Bladder is within limits. The uterus is enlarged, containing fluid within the endometrial canal. Rectosigmoid colon demonstrates stool. No significant free fluid. No pelvic lymphadenopathy. The visualized osseous structures appears to be within normal limits. IMPRESSION: 1. Status post cholecystectomy. Small amount of fluid is noted within the gallbladder fossa, likely postsurgical changes. Findings may represent a small postoperative seroma or biloma. No gross CT evidence to suggest biliary leak. 2. No evidence of bowel obstruction. Stool filled loops of large bowel suggestive of constipation. The appendix is within normal limits. 3. Several fluid filled loops of small bowel which may represent mild gastroenteritis and ileus. 4. No evidence of free fluid or free air. No gross focal fluid collections. 5. 3.4 mm right-sided nonobstructing nephrolithiasis. No evidence of obstructive uropathy within both kidneys. RPTAT: AAPP Physician Trace Date Time Electronically viewed and signed by Physician Trace on 01/26/2019 10:38 MEDICATIONS GIVEN: Patient tolerated medication well with no adverse reactions. Patient reported improvement in pain. Departure Diagnosis: Primary Impression: Epigastric pain Condition: Stable SAMPSON SNEED NP Jan 26, 2019 08:59
[2019-01-26] MEDS ORDERED: IOHEXOL 300MG/ML 150 ML BTL ONE (09:59)
[2019-01-26] MEDS ORDERED: SOD CHLORIDE 0.9% 100 ML ONE (09:59)
--- NOTE | 2019-01-26 12:29 | EN ---
Date/Time of Note Date/Time of Note DATE: 01/26/19 TIME: 12:20 ER Progress Note I have discussed the patient along with the PA and/or CERTIFIED MORTICIAN provider. I agree with the evaluation and plan of care. Please see their documentation for full ER course and evaluation. In short: Patient presents with postoperative abdominal pain status post acute cholecystectomy Assessment and plan: The patient has CT showing evidence of possible biloma. Dr. Houser was cons ulted and recommends hospitalization, HIDA scan. Admitting team notified. Accepting care team and consultations: I discussed the current laboratory data, diagnostic imaging and emergency care provided. Admitting team: Dr. Benz Admitting team indication: Insurance directed LASHAE PATEL MD Jan 26, 2019 12:29
[2019-01-26] MEDS ORDERED: ONDANSETRON 4 MG INJ IV PRN ×2 (12:30→13:30)
[2019-01-26] MEDS ORDERED: ACETAMINOPHEN 325 MG TAB PO PRN (12:30)
--- NOTE | 2019-01-26 12:57 | HP ---
Date/Time of Note Date/Time of Note DATE: 01/26/19 TIME: 12:56 Assessment/Plan VTE Prophylaxis SCD applied (from Nsg): Yes Pharmacological prophylaxis: NA/contraindicated Pharm contraindication: low risk/ambulating Lines/Catheters IV Catheter Type (from Nrsg): Saline Lock Assessment/Plan Hospital Course SUBJECTIVE: Seen and evaluated patient in ER . Complaining of 8 out of 10 on right upper quadrant. OBJECTIVE: Vital signs-see below PHYSICAL EXAM: Constitutional: Well-developed, adequately built, lying in bed comfortably. Psych: nl mood/affect, no complaints Head: atraumatic, normocephalic Eyes: nl conjunctiva, nl sclera ENMT: mucosa pink and moist, nl external ears & nose Neck: non-tender, supple Respiratory: clear to auscultation, normal air movement Cardiovascular: nl pulses, regular rate and rhythm Gastrointestinal: +Tenderness RUQ., soft, bowel sounds active in all 4 quadrants. Musculoskeletal/extremities: nl extremities to inspection, motor strength equal bilaterally, no focal deficit. Normal pulses,no cyanosis, no edema. Neurological: Alert oriented 3,nl speech, nl strength Skin: nl turgor ASSESSMENT/PLAN: 28-year-old female who underwent laparoscopic cholecystectomy 1 week ago, presenting back with worsening pain in her right upper quadrant, found to have transaminase elevation. 1. Abdominal pain, RUQ pain post cholecystectomyx1 wk -Ct W/ questionable biloma, no visible bile leak. I will consult GI for consideration for ERCP vs further imaging. --Surgeon has been consulted. -Continue pain control and empiric antimicrobials -follow-up surgery/gi recommendations. 2. Transaminase elevation, likely concurrent with #1 -Apparently patient had her LFTs ranging in the 100's before cholecystectomy which has now improved. However, it is not getting normalized. At this time, I will consider GI evaluation to r/o other etiologies. No acute liver issues identified in CTs. 3. Obesity -Weight reduction advised 4. Constipation -CT shows large amount of stool, likely also attributing to #1. -Bowel regimen/ stool softeners and laxatives. DVT prophylaxis: SCDs PUD prophylaxis: Pepcid CODE STATUS: Full code Diet: Per surgical recommendations. Rest of the management depend on hospital course. Approximately 60 m spent on this history and physical. Patient was seen in collaboration with Dr. Garrison. Result Diagram: 01/26/1990101/26/19901 Results 24hrs Laboratory Tests Test 01/26/19 08:41 01/26/19 08:49 01/26/19 09:02 POC Beta HCG, Qualitative NEGATIVE Bedside Urine pH (LAB) 5.5 Bedside Urine Protein (LAB) Negative Bedside Urine Glucose (UA) Negative Bedside Urine Ketones (LAB) Negative Bedside Urine Blood Trace-intact H Bedside Urine Nitrite (LAB) Negative Bedside Urine Leukocyte Esterase Trace H (L White Blood Count 5.5 # Red Blood Count 4.93 # Hemoglobin 14.6 Hematocrit 43.5 # Mean Corpuscular Volume 88.2 Mean Corpuscular Hemoglobin 29.6 Mean Corpuscular 33.6 Hemoglobin Concent Red Cell Distribution Width 12.6 Platelet Count 257 Mean Platelet Volume 9.3 Immature Granulocytes % 0.400 Neutrophils % 49.6 Lymphocytes % 33.8 Monocytes % 14.1 H Eosinophils % 1.6 Basophils % 0.5 Nucleated Red Blood Cells % 0.0 Immature Granulocytes # 0.020 Neutrophils # 2.7 Lymphocytes # 1.9 Monocytes # 0.8 Eosinophils # 0.1 Basophils # 0.0 Nucleated Red Blood Cells # 0.0 Sodium Level 141 Potassium Level 4.2 Chloride Level 106 Carbon Dioxide Level 23 Anion Gap 12 Blood Urea Nitrogen 14 Creatinine 0.60 Est Glomerular Filtrat > 60 Rate mL/min Glucose Level 104 Calcium Level 9.6 Total Bilirubin 0.5 Direct Bilirubin 0.00 Indirect Bilirubin 0.5 Aspartate Amino Transf (AST/SGOT) 315 H Alanine 455 H Aminotransferase (ALT/SGPT) Alkaline Phosphatase 82 Total Protein 8.6 H Albumin 4.4 Globulin 4.20 H Albumin/Globulin Ratio 1.04 Lipase 85 HPI/ROS Admit Date/Time Admit Date/Time Hx of Present Illness This is a 28-year-old obese female who is status post cholecystectomy 1 week ago here at [facility], transaminase elevation, presented back to the emergency room with worsening right upper quadrant abdominal pain who was unable to get touch with the surgeon's office. Patient denied nausea, vomiting, diarrhea, fever, chills, hematochezia, melena or other GI symptoms. She also denies chest pain, palpitation, shortness of breath, numbness, tingling, dizziness, speech difficulties, vision changes or other constitutional symptoms. Patient's initial CBC unremarkable. CMP showed elevated AST 315, ALT 455. Normal bilirubin. HCG negative. Urine analysis with trace leukocyte esterase. CT scan showed no gross evidence of biliary leak. There was small amount of fluid in the gallbladder fossa, likely postsurgical changes or postoperative seroma versus biloma. There is also evidence of stool-filled loops of large bowel suggestive of constipation. No evidence of free air or fluid. There is also nonobstructing nephrolithiasis right-sided 3.4 mm. ROS A 12 point review of system was assessed and is negative other than what is mentioned in the HPI PMH/Family/Social Past Medical History See HPI Medications Current Medications Ondansetron HCl (Zofran Inj) 4 mg BRIDGE ORDER PRN IV NAUSEA/VOMITING; Start 01/26/19 at 12:30; Stop 01/27/19 at 12:29 Acetaminophen (Tylenol Tab) 650 mg ER BRIDGE PRN PO .MILD PAIN 1-3 OR TEMP; Start 01/26/19 at 12:30; Stop 01/27/19 at 12:29 Coded Allergies: ceftriaxone (Verified Allergy, Severe, SOB,chest tightness, 01/26/19) PER PT Past Surgical History See HPI Past Surgical Hx: no surgical history Family History Significant Family History: no pertinent family hx Social History Denied history of alcohol, smoking or illicit drug use. Smoking Status: Never smoker Exam/Review of Systems Vital Signs Vitals Vital Signs Date Temp Pulse Resp B/P (MAP) Pulse Ox O2 O2 Flow FiO2 Time Delivery Rate 01/26/19 99.0 102 20 124/85 100 Room Air 12:00 (98) NAOMI SAUER NP Jan 26, 2019 12:57
[2019-01-26] MEDS ORDERED: NACL 0.9% 3 ML SYG IV SCH (13:30)
[2019-01-26] MEDS ORDERED: PIPER-TAZO 3.375 GM IV (PMX) 100 ML IVPB SCH (13:30)
[2019-01-26 15:00] VITALS: Ht 170.2 cm; Wt 82.9 kg
[2019-01-26 15:30] VITALS: BP 113/71; PULSE 95; RESP 18
[2019-01-26] MEDS: CIPROFLOXACIN 400 MG in D5W 200 ML IVPB SCH ×2 (15:42→23:27)
[2019-01-26] MEDS: Metronidazole 500 MG in NS 100 ML IVPB SCH ×2 (18:03→22:31)
[2019-01-26] MEDS: DEXTROSE 5%-0.45% NACL 1,000 ML IV SCH (18:04)
--- NOTE | 2019-01-26 18:10 | CONS ---
Assessment/Plan Assessment/Plan Assessment/Plan (Daily) Assessment: Severe right upper quadrant pain 1 week post laparoscopic cholecystectomy. Rule out biloma given fluid collection in gallbladder fossa Rule out bile leak Rule out CBD stone with significant liver function test elevation Post laparoscopic cholecystectomy 01/18/2019 Obesity Plan: Stat HIDA scan. Tentatively scheduled for ERCP tomorrow Further recommendation will depend on patient's clinical course and imaging studies Consultation Date/Type/Reason Admit Date/Time Date of Consultation: Jan 26, 2019 Type of Consult Gastroenterology Reason for Consultation Right upper quadrant abdominal pain post cholecystectomy Date/Time of Note DATE: 01/26/19 TIME: 18:03 Hx of Present Illness 28-year-old female underwent laparoscopic cholecystectomy January 18, 2019 was discharged in apparent good condition. The patient returns to the hospital complains of right upper quadrant abdominal pain a CT of the abdomen showed small fluid collection in the gallbladder fossa which raises question possible biloma. There is no clear evidence of bile leak. There is also significant abnormality of liver function tests which was not present previously. The pat ient describes her pain is severe right upper quadrant radiating towards the back an 9 out of 10 in severity. There is also associated nausea no vomiting. There is no fever chills diaphoresis. The patient will be having a stat HIDA scan and has been tentatively scheduled for ERCP tomorrow Review of Systems: [A 12 system, review was conducted and is negative except as noted in the HPI or here.] Gastrointestinal and liver: [As noted in HPI] Past Medical History Medical History: no pertinent history Home Meds Active Scripts [Work Note] No Conflict Check This is to certify that the patient was admitted to [facility] from 01/16/2019 to 01/19/2019. The patient can return back to work on 01/24/2019 with restriction of no heavy lifting more than 15 pounds until 02/15/2019. Prov:JULIEN BABIN APPLIANCE TECHNICIAN 01/19/19 Simethicone (Simethicone) 180 Mg Capsule, 180 MG PO Q6H for gas pain, #10 CAP Prov:JULIEN BABIN APPLIANCE TECHNICIAN 01/19/19 Docusate Sodium* (Colace*) 100 Mg Capsule, 100 MG PO BID, #20 CAP Prov:JULIEN BABIN APPLIANCE TECHNICIAN 01/19/19 Hydrocodone/Acetaminophen ([place] 5-325 Tablet) 1 Each Tablet, 1 EACH PO Q6H for pain, #10 TAB Prov:JULIEN BABIN APPLIANCE TECHNICIAN 01/19/19 Discontinued Reported Medications Tramadol Hcl* (Ultram*) 50 Mg Tablet, 50 MG PO DAILY PRN for PAIN, TAB 01/18/19 Medications Current Medications Acetaminophen (Tylenol Tab) 650 mg ER BRIDGE PRN PO .MILD PAIN 1-3 OR TEMP; Start 01/26/19 at 12:30; Stop 01/27/19 at 12:29 IV Flush (NS 3 ml) 3 ml PER PROTOCOL IV ; Start 01/26/19 at 13:30 Ondansetron HCl (Zofran Inj) 4 mg Q6H PRN IV NAUSEA/VOMITING; Start 01/26/19 at 13:30 Morphine Sulfate (morphine) 2 mg Q4H PRN IV .SEVERE PAIN 7-10; Start 01/26/19 at 13:30 Ciprofloxacin/ Dextrose 200 ml @ 200 mls/hr Q12 IVPB Last administered on 01/26/19at 15:42; Admin Dose 200 MLS/HR; Start 01/26/19 at 14:00 Metronidazole 100 ml @ 100 mls/hr Q8 IVPB ; Start 01/26/19 at 14:00 Magnesium Hydroxide (Milk Of Mag) 30 ml BID PO ; Start 01/26/19 at 21:00 Docusate Sodium (Colace) 200 mg BID PO ; Start 01/26/19 at 21:00 Dextrose/Sodium Chloride 1,000 ml @ 100 mls/hr Q10H IV ; Start 01/26/19 at 16:30 Indomethacin (Indocin Supp) 100 mg ONCE ONCE [place] ; Start 01/26/19 at 18:30; Stop 01/26/19 at 18:31 Allergies: Coded Allergies: ceftriaxone (Verified Allergy, Severe, SOB,chest tightness, 01/26/19) PER PT Past Surgical History Past Surgical Hx: cholecystectomy (01/18/2019) Family History Significant Family History: no pertinent family hx Social History Alcohol Use: none Smoking Status: Never smoker Drug Use: none Exam/Review of Systems Exam Vitals Vital Signs Date Temp Pulse Resp B/P (MAP) Pulse Ox O2 O2 Flow FiO2 Time Delivery Rate 01/26/19 98.4 95 18 113/71 98 Room Air 15:30 (85) Exam PHYSICAL EXAMINATION: GENERAL: Well developed, well nourished, mildly obese, alert & oriented x 3, in no acute distress SKIN: No lesions, no stigmata chronic liver disease, no evidence of bleeding diathesis LYMPHATIC: No palpable lymphadenopathy. HEAD: Normocephalic, atraumatic, no tenderness. EYES: Pupils equal reactive to light and accommodation, full extraocular movements, sclera clear, non-icteric, no discharge. EARS/NOSE AND THROAT: Ears normal, nose normal, oropharynx normal, oral membranes well hydrated without lesions. NECK: Supple, no masses, thyroid normal, JVP within normal limits, carotids normal without bruits. CHEST: Inspection within normal limits. CARDIOVASCULAR: Heart: Regular rate and rhythm, no murmurs, gallops or rubs. Peripheral pulses present within normal limits, no cyanosis, clubbing or edemas. No pulsatile abdominal mass RESPIRATORY: Lungs clear to auscultation and percussion, no wheezing, no rubs GASTROINTESTINAL AND LIVER: Abdomen: Soft, moderate right upper quadrant tenderness, non-distended, no hernias, no masses, no organomegaly, no ascites, no guarding, no rebound tenderness, normoactive bowel sounds. Rectal: Deferred. GENITOURINARY: [Female genitalia within normal limits.] EXTREMITIES: No cyanosis, clubbing or edema. [MUSCULO-SKELETAL: Gait and station within normal limits, range of motion ad equate.] [NEUROLOGIC: Cranial nerves II-XII intact, Motor within normal limits, Sensory within normal limits. Reflexes within normal limits. PSYCHIATRIC: Alert & oriented x 3, mood/affect/judgement adequate] Results Result Diagram: 01/26/19 0902 01/26/19 0902 Results 24hrs Laboratory Tests Test 01/26/19 08:41 01/26/19 08:49 01/26/19 09:02 01/26/19 14:05 POC Beta HCG, NEGATIVE Qualitative Bedside Urine pH 5.5 (LAB) Bedside Urine Negative Protein (LAB) Bedside Urine Negative Glucose (UA) Bedside Urine Negative Ketones (LAB) Bedside Urine Trace-intact H Blood Bedside Urine Negative Nitrite (LAB) Bedside Urine Trace H Leukocyte Estera se (L White Blood 5.5 # Count Red Blood Count 4.93 # Hemoglobin 14.6 Hematocrit 43.5 # Mean Corpuscular 88.2 Volume Mean Corpuscular 29.6 Hemoglobin Mean Corpuscular 33.6 Hemoglobin [place] nt Red Cell 12.6 Distribution Width Platelet Count 257 Mean Platelet 9.3 Volume Immature 0.400 Granulocytes % Neutrophils % 49.6 Lymphocytes % 33.8 Monocytes % 14.1 H Eosinophils % 1.6 Basophils % 0.5 Nucleated Red 0.0 Blood Cells % Immature 0.020 Granulocytes # Neutrophils # 2.7 Lymphocytes # 1.9 Monocytes # 0.8 Eosinophils # 0.1 Basophils # 0.0 Nucleated Red 0.0 Blood Cells # Sodium Level 141 Potassium Level 4.2 Chloride Level 106 Carbon Dioxide 23 Level Anion Gap 12 Blood Urea 14 Nitrogen Creatinine 0.60 Est Glomerular > 60 Filtrat Rate mL/min Glucose Level 104 Calcium Level 9.6 Total Bilirubin 0.5 Direct Bilirubin 0.00 Indirect 0.5 Bilirubin Aspartate Amino 315 H Transf (AST/SGOT ) Alanine 455 H Aminotransferase (ALT/SGPT) Alkaline 82 Phosphatase Total Protein 8.6 H Albumin 4.4 Globulin 4.20 H Albumin/Globulin 1.04 Ratio Amylase Level 43 Lipase 85 Urine Color YELLOW Urine Clarity SLIGHTLY CLOUDY A Urine pH 5.0 Urine Specific 1.028 [place] Urine Ketones NEGATIVE Urine Nitrite NEGATIVE Urine Bilirubin NEGATIVE Urine NEGATIVE Urobilinogen Urine Leukocyte 1+ H Esterase Urine 4 Microscopic RBC Urine 4 Microscopic WBC Urine Squamous FEW Epithelial Cells Urine Bacteria FEW A Urine Mucus FEW A Urine Hemoglobin NEGATIVE Urine Glucose NEGATIVE Urine Total NEGATIVE Protein Medications Medication Current Medications Acetaminophen (Tylenol Tab) 650 mg ER BRIDGE PRN PO .MILD PAIN 1-3 OR TEMP; Start 01/26/19 at 12:30; Stop 01/27/19 at 12:29 IV Flush (NS 3 ml) 3 ml PER PROTOCOL IV ; Start 01/26/19 at 13:30 Ondansetron HCl (Zofran Inj) 4 mg Q6H PRN IV NAUSEA/VOMITING; Start 01/26/19 at 13:30 Morphine Sulfate (morphine) 2 mg Q4H PRN IV .SEVERE PAIN 7-10; Start 01/26/19 at 13:30 Ciprofloxacin/ Dextrose 200 ml @ 200 mls/hr Q12 IVPB Last administered on 01/26/19at 15:42; Admin Dose 200 MLS/HR; Start 01/26/19 at 14:00 Metronidazole 100 ml @ 100 mls/hr Q8 IVPB ; Start 01/26/19 at 14:00 Magnesium Hydroxide (Milk Of Mag) 30 ml BID PO ; Start 01/26/19 at 21:00 Docusate Sodium (Colace) 200 mg BID PO ; Start 01/26/19 at 21:00 Dextrose/Sodium Chloride 1,000 ml @ 100 mls/hr Q10H IV ; Start 01/26/19 at 16:30 Indomethacin (Indocin Supp) 100 mg ONCE ONCE [place] ; Start 01/26/19 at 18:30; Stop 01/26/19 at 18:31 SANDRO MOJICA MD Jan 26, 2019 18:10
[2019-01-26] MEDS ORDERED: INDOMETHACIN 50 MG SUPP PR ONE (18:30)
[2019-01-26] MEDS: morphine 2 MG INJ IV PRN (19:01)
[2019-01-26 20:20] VITALS: BP 108/68; PULSE 85; RESP 16
[2019-01-26] MEDS: MAGNESIUM HYDROXIDE 30ML CUP PO SCH (20:57)
[2019-01-26] MEDS: DOCUSATE SODIUM 100 MG CAP PO SCH (20:57)
[2019-01-26] MEDS ORDERED: DOCUSATE SODIUM 100 MG CAP PO SCH (21:00)
[2019-01-27] VITALS (16 sets, daily range): BP systolic 98–130; BP diastolic 55–78; PULSE 75–100; RESP 16–24
[2019-01-27] MEDS: DEXTROSE 5%-0.45% NACL 1,000 ML IV SCH ×4 (02:30→21:45)
[2019-01-27] MEDS: morphine 2 MG INJ IV PRN ×3 (04:39→21:45)
[2019-01-27] MEDS: Metronidazole 500 MG in NS 100 ML IVPB SCH ×3 (05:43→21:44)
[2019-01-27] MEDS ORDERED: LIDOCAINE 2% (SDV) 5 ML INJ ONE (07:00)
[2019-01-27] MEDS ORDERED: SUCCINYLCHOLINE CHLORIDE 100 MG/5 ML SYG IV ONE (07:00)
[2019-01-27] MEDS ORDERED: CEFAZOLIN 1 GM INJ ONE (07:00)
[2019-01-27] MEDS ORDERED: PROPOFOL 200 MG INJ ONE (07:00)
[2019-01-27] MEDS ORDERED: IOHEXOL 300MG/ML 30 ML BTL ONE (08:26)
--- NOTE | 2019-01-27 08:49 | PREAC ---
Date/Time of Note Date/Time of Note DATE: 01/27/19 TIME: 08:39 Anesthesia Eval and Record Evaluation Time Pre-Procedure Interview DATE: 01/27/19 TIME: 08:39 Age 28 Sex female NPO: 8 hrs Preoperative diagnosis RUQ pain Planned procedure ERCP Past Medical History Past Medical History: None Hepatic: Other (Elevated LFTs) Surgery & Anesthesia Issues No known issue Meds Anticoagulation: No Beta Carrington within 24 hr: No Reason Beta Carrington not given: Pt. not on B-Carrington Active Scripts [Work Note] No Conflict Check This is to certify that the patient was admitted to [facility] from 01/16/2019 to 01/19/2019. The patient can return back to work on 01/24/2019 with restriction of no heavy lifting more than 15 pounds until 02/15/2019. Prov:JULIEN BABIN BANQUET WAITER/WAITRESS 01/19/19 Simethicone (Simethicone) 180 Mg Capsule, 180 MG PO Q6H for gas pain, #10 CAP Prov:JULIEN BABIN BANQUET WAITER/WAITRESS 01/19/19 Docusate Sodium* (Colace*) 100 Mg Capsule, 100 MG PO BID, #20 CAP Prov:JULIEN BABIN BANQUET WAITER/WAITRESS 01/19/19 Hydrocodone/Acetaminophen ([place] 5-325 Tablet) 1 Each Tablet, 1 EACH PO Q6H for pain, #10 TAB Prov:JULIEN BABIN NP 01/19/19 Current Medications Acetaminophen (Tylenol Tab) 650 mg ER BRIDGE PRN PO .MILD PAIN 1-3 OR TEMP; Start 01/26/19 at 12:30; Stop 01/27/19 at 12:29 IV Flush (NS 3 ml) 3 ml PER PROTOCOL IV ; Start 01/26/19 at 13:30 Ondansetron HCl (Zofran Inj) 4 mg Q6H PRN IV NAUSEA/VOMITING Last administered on 01/26/19at 20:58; Admin Dose 4 MG; Start 01/26/19 at 13:30 Morphine Sulfate (morphine) 2 mg Q4H PRN IV .SEVERE PAIN 7-10 Last administered on 01/27/19at 04:39; Admin Dose 2 MG; Start 01/26/19 at 13:30 Ciprofloxacin/ Dextrose 200 ml @ 200 mls/hr Q12 IVPB Last administered on 01/26/19at 23:27; Admin Dose 200 MLS/HR; Start 01/26/19 at 14:00 Metronidazole 100 ml @ 100 mls/hr Q8 IVPB Last administered on 01/27/19at 05:43; Admin Dose 100 MLS/HR; Start 01/26/19 at 14:00 Magnesium Hydroxide (Milk Of Mag) 30 ml BID PO ; Start 01/26/19 at 21:00 Docusate Sodium (Colace) 200 mg BID PO ; Start 01/26/19 at 21:00 Dextrose/Sodium Chloride 1,000 ml @ 100 mls/hr Q10H IV Last administered on 01/26/19at 18:04; Admin Dose 100 MLS/HR; Start 01/26/19 at 16:30 Meds reviewed: Yes Allergies Coded Allergies: ceftriaxone (Verified Allergy, Severe, SOB,chest tightness, 01/26/19) PER PT Allergies Reviewed: Yes Labs/Studies Labs Reviewed: Reviewed by anesthesiologist Result Diagram: 01/27/19 0431 01/27/19 0431 Laboratory Tests 01/27/19 04:31 test: Negative Pre-procedure Exam Last vitals Vital Signs Date Temp Pulse Resp B/P (MAP) Pulse Ox O2 O2 Flow FiO2 Time Delivery Rate 01/27/19 98.2 82 17 99/58 (72) 98 Room Air 07:29 Airway: Adequate mouth opening, Adequate thyromental dist Mallampati: Mallampati II Teeth: Normal Lung: Normal Heart: Normal ASA Physical Status ASA physical status: 2 Emergency: None Planned Anesthetic General/MAC: ETT Pre-operative Attestations Prior to commencing anesthesia and surgery, the patient was re-evaluated, there was verification of: *The patient's identity *The results of appropriate recent lab work and preoperative vital signs *The above evaluation not changing prior to induction *Anesthetic plan, risk benefits, alternative and complications discussed with patient/family; questions answered; patient/family understands, accepts and wishes to proceed. MARY JARAMILLO MD Jan 27, 2019 08:49
[2019-01-27] MEDS ORDERED: INDOMETHACIN 50 MG SUPP PR ONE (09:00)
[2019-01-27] MEDS ORDERED: FENTAnyl 50 MCG/ML VIAL ONE (09:01)
[2019-01-27] MEDS ORDERED: MIDAZOLAM 1 MG/ML 2 ML INJ ONE (09:01)
[2019-01-27] MEDS ORDERED: ONDANSETRON 4 MG INJ ONE (09:26)
[2019-01-27] MEDS ORDERED: DEXAMETHASONE 4 MG/ML 5 ML INJ ONE (09:26)
--- NOTE | 2019-01-27 09:52 | OPPN ---
Date/Time of Note Date/Time of Note DATE: 01/27/19 TIME: 09:49 Proc Note GI Procedure Date 01/27/19 Indication: diagnostic Pre-procedure Diagnosis Right upper quadrant abdominal pain post cholecystectomy. Abnormal liver function test Post-procedure Diagnosis Impression: Dilated CBD with an estimated maximum diameter of 12 mm. Filling defect distal common bile duct consistent with sludge. No evidence of biliary leak Post sphincterotomy. Post sludge removal. Plan: Close observation. Liver workup for hepatocellular conditions. Advance diet as tolerated. Procedure Performed: ERCP Surgeon SANDRO MOJICA MD See signature line Tube Filler none Anesthesia Type: general Tourniquet Time none EBL none Transfusion required none Biopsy 1: None Grafts/Implants none Tubes/Drains none Complication(s) none Disposition: PACU Procedure Description After informed consent, with the patient/relatives understanding the procedure, its indications, potential risks and complications, including but not limited to: allergic reaction, bleeding, perforation or infection, and after all pertinent questions were answered to the patients satisfaction, the patient/relatives signed witnessed informed consent. Following this, premedication was administered slowly IV push under careful cardiovascular and respiratory monitoring with pulse oximetry, automatic blood pressure, and cafeteria monitor. Once the sedative effect was achieved the patient was place in the prone position in the radiology special procedures suite; the side viewing panendoscope was introduced and advanced under visual control. Careful examination of the upper gastrointestinal tract, both on insertion as well as withdrawal of the instrument disclosed the following findings: Esophagus: The mucosa of the entire appears within normal limits. There is no evidence of esophagitis, varices, neoplasm or stricture. No Hiatal Hernia identified. Stomach: Upon entrance to the stomach air was insufflated, the gastric sabillon distended normally, the mucosa of the fundus, body and antrum of the stomach was carefully examined both head-on and on retroflexion, and shows no abnormalities. There is no evidence of gastritis, ulcers, or neoplasm. Pylorus: The pylorus appears patent and within normal limits, with no evidence of gastric outlet obstruction. Duodenum: The duodenal mucosa was carefully examined in the duodenal bulb as well as the second portion of the duodenum and appears unremarkable with no evidence of duodenitis, ulcer or neoplasm. Ampulla of vater: The ampulla of Vater was identified and carefully examined appearing within normal limits. Cannulation: At this point cannulation was accomplished with the following fluoroscopic findings: Pancreatogram: Avoided Cholangiogram: Common bile duct and common hepatic duct appeared moderately dilated with an estimated maximum diameter of 12 mm. An amorphous filling defect is noted in the distal common bile duct. Poor emptying is documented. Standard sphincterotomy was performed. Following this a 9-12 mm balloon was utilized to sweep the biliary tree and some sludge was removed. A balloon cholangiogram showed no evidence of intraductal pathology or bile leak. Rapid emptying has been established. The instrument was then withdrawn the patient tolerated the procedure well and was transfer out of the endoscopy suite awake, and in good condition to continue to recover under observation. Copies To: CC: SANDRO MOJICA MD ; SANDRO MOJICA MD Jan 27, 2019 09:52
--- NOTE | 2019-01-27 09:58 | PN ---
Date/Time of Note Date/Time of Note DATE: 01/27/19 TIME: 09:56 Assessment/Plan VTE Prophylaxis Risk score (from Ns)>0 risk: 3 SCD applied (from [facility]): Yes Pharmacological prophylaxis: NA/contraindicated Pharm contraindication: low risk/ambulating Lines/Catheters IV Catheter Type (from [facility]): Peripheral IV Urinary Cath still in place: No Assessment/Plan Hospital Course SUBJECTIVE: S/p ERCP OBJECTIVE: Vital signs-see below PHYSICAL EXAM: Constitutional: Well-developed, adequately built, lying in bed comfortably. Psych: nl mood/affect, no complaints Head: atraumatic, normocephalic Eyes: nl conjunctiva, nl sclera ENMT: mucosa pink and moist, nl external ears & nose Neck: non-tender, supple Respiratory: clear to auscultation, normal air movement Cardiovascular: nl pulses, regular rate and rhythm Gastrointestinal: tenderness RUQ-Improved, soft, bowel sounds active in all 4 quadrants. Musculoskeletal/extremities: nl extremities to inspection, motor strength equal bilaterally, no focal deficit. Normal pulses,no cyanosis, no edema. Neurological: Alert oriented 3,nl speech, nl strength Skin: nl turgor ASSESSMENT/PLAN: 28-year-old female who underwent laparoscopic cholecystectomy 1 week ago, presenting back with worsening pain in her right upper quadrant, found to have persistent transaminase elevation. 1. Abdominal pain, RUQ pain post cholecystectomyx1 wk , improving -Ct shows questionable biloma, no visible bile leak. - Status post ERCP 01/27/2019 Impression: Dilated CBD with an estimated maximum diameter of 12 mm. Filling defect distal common bile duct consistent with sludge. No evidence of biliary leak Post sphincterotomy. Post sludge removal. -Follow-up surgery/GI recommendations=> GI recommended further hepatocellular et iology workup. 2. Transaminase elevation, likely concurrent with #1 -Improving. 3. Obesity -Weight reduction advised 4. Constipation -Stable -Bowel regimen/ stool softeners and laxatives. DVT prophylaxis: SCDs PUD prophylaxis: Pepcid CODE STATUS: Full code Diet: Per GI/ surgical recommendations. Specimen: Follow-up surgical/GI recommendations. Patient was seen in collaboration with Dr. Benz Result Diagram: 01/27/19 0431 01/27/19 0431 Results 24hrs Laboratory Tests Test 01/26/19 14:05 01/27/19 04:31 Urine Color YELLOW Urine Clarity SLIGHTLY CLOUDY A Urine pH 5.0 Urine Specific [place] 1.028 Urine Ketones NEGATIVE Urine Nitrite NEGATIVE Urine Bilirubin NEGATIVE Urine Urobilinogen NEGATIVE Urine Leukocyte Esterase 1+ H Urine Microscopic RBC 4 Urine Microscopic WBC 4 Urine Squamous Epithelial Cells FEW Urine Bacteria FEW A Urine Mucus FEW A Urine Hemoglobin NEGATIVE Urine Glucose NEGATIVE Urine Total Protein NEGATIVE White Blood Count 4.6 L Red Blood Count 4.65 Hemoglobin 13.8 Hematocrit 41.0 Mean Corpuscular Volume 88.2 Mean Corpuscular Hemoglobin 29.7 Mean Corpuscular Hemoglobin Concent 33.7 Red Cell Distribution Width 12.5 Platelet Count 261 Mean Platelet Volume 9.2 Immature Granulocytes % 0.200 Neutrophils % 39.4 Lymphocytes % 41.5 Monocytes % 16.8 H Eosinophils % 1.7 Basophils % 0.4 Nucleated Red Blood Cells % 0.0 Immature Granulocytes # 0.010 Neutrophils # 1.8 Lymphocytes # 1.9 Monocytes # 0.8 Eosinophils # 0.1 Basophils # 0.0 Nucleated Red Blood Cells # 0.0 Sodium Level 138 Potassium Level 4.2 Chloride Level 105 Carbon Dioxide Level 24 Anion Gap 9 Blood Urea Nitrogen 10 Creatinine 0.63 Est Glomerular Filtrat Rate mL/min > 60 Glucose Level 95 Calcium Level 9.4 Phosphorus Level 4.0 Magnesium Level 2.0 Total Bilirubin 0.8 Direct Bilirubin 0.00 Indirect Bilirubin 0.8 Aspartate Amino Transf (AST/SGOT) 243 H Alanine Aminotransferase (ALT/SGPT) 383 H Alkaline Phosphatase 70 Total Protein 7.7 Albumin 4.0 Globulin 3.70 H Albumin/Globulin Ratio 1.08 Exam/Review of Systems Exam Vitals Vital Signs Date Temp Pulse Resp B/P (MAP) Pulse Ox O2 O2 Flow FiO2 Time Delivery Rate 01/27/19 98.2 82 17 99/58 (72) 98 Room Air 07:29 Intake and Output 01/26/19 01/26/19 01/27/19 1414:59 22:59 06:59 IntakeIntake Total 1000 ml 400 ml 1050 ml BalanceBalance 1000 ml 400 ml 1050 ml Results Results 24hrs Laboratory Tests Test 01/26/19 14:05 01/27/19 04:31 Urine Color YELLOW Urine Clarity SLIGHTLY CLOUDY A Urine pH 5.0 Urine Specific [place] 1.028 Urine Ketones NEGATIVE Urine Nitrite NEGATIVE Urine Bilirubin NEGATIVE Urine Urobilinogen NEGATIVE Urine Leukocyte Esterase 1+ H Urine Microscopic RBC 4 Urine Microscopic WBC 4 Urine Squamous Epithelial Cells FEW Urine Bacteria FEW A Urine Mucus FEW A Urine Hemoglobin NEGATIVE Urine Glucose NEGATIVE Urine Total Protein NEGATIVE White Blood Count 4.6 L Red Blood Count 4.65 Hemoglobin 13.8 Hematocrit 41.0 Mean Corpuscular Volume 88.2 Mean Corpuscular Hemoglobin 29.7 Mean Corpuscular Hemoglobin Concent 33.7 Red Cell Distribution Width 12.5 Platelet Count 261 Mean Platelet Volume 9.2 Immature Granulocytes % 0.200 Neutrophils % 39.4 Lymphocytes % 41.5 Monocytes % 16.8 H Eosinophils % 1.7 Basophils % 0.4 Nucleated Red Blood Cells % 0.0 Immature Granulocytes # 0.010 Neutrophils # 1.8 Lymphocytes # 1.9 Monocytes # 0.8 Eosinophils # 0.1 Basophils # 0.0 Nucleated Red Blood Cells # 0.0 Sodium Level 138 Potassium Level 4.2 Chloride Level 105 Carbon Dioxide Level 24 Anion Gap 9 Blood Urea Nitrogen 10 Creatinine 0.63 Est Glomerular Filtrat Rate mL/min > 60 Glucose Level 95 Calcium Level 9.4 Phosphorus Level 4.0 Magnesium Level 2.0 Total Bilirubin 0.8 Direct Bilirubin 0.00 Indirect Bilirubin 0.8 Aspartate Amino Transf (AST/SGOT) 243 H Alanine Aminotransferase (ALT/SGPT) 383 H Alkaline Phosphatase 70 Total Protein 7.7 Albumin 4.0 Globulin 3.70 H Albumin/Globulin Ratio 1.08 Medications Medication Current Medications Acetaminophen (Tylenol Tab) 650 mg ER BRIDGE PRN PO .MILD PAIN 1-3 OR TEMP; Start 01/26/19 at 12:30; Stop 01/27/19 at 12:29 IV Flush (NS 3 ml) 3 ml PER PROTOCOL IV ; Start 01/26/19 at 13:30 Ondansetron HCl (Zofran Inj) 4 mg Q6H PRN IV NAUSEA/VOMITING Last administered on 01/26/19at 20:58; Admin Dose 4 MG; Start 01/26/19 at 13:30 Morphine Sulfate (morphine) 2 mg Q4H PRN IV .SEVERE PAIN 7-10 Last administered on 01/27/19at 04:39; Admin Dose 2 MG; Start 01/26/19 at 13:30 Ciprofloxacin/ Dextrose 200 ml @ 200 mls/hr Q12 IVPB Last administered on 01/26/19at 23:27; Admin Dose 200 MLS/HR; Start 01/26/19 at 14:00 Metronidazole 100 ml @ 100 mls/hr Q8 IVPB Last administered on 01/27/19at 05:43; Admin Dose 100 MLS/HR; Start 01/26/19 at 14:00 Magnesium Hydroxide (Milk Of Mag) 30 ml BID PO ; Start 01/26/19 at 21:00 Docusate Sodium (Colace) 200 mg BID PO ; Start 01/26/19 at 21:00 Dextrose/Sodium Chloride 1,000 ml @ 100 mls/hr Q10H IV Last administered on 01/26/19at 18:04; Admin Dose 100 MLS/HR; Start 01/26/19 at 16:30 Fentanyl (Sublimaze) 25 mcg PACU ORDER PRN IV MILD PAIN 1-3; Start 01/27/19 at 10:00; Status UNV Fentanyl (Sublimaze) 50 mcg PACU ORDER PRN IV MOD PAIN 4-6; Start 01/27/19 at 10:00; Status UNV Ondansetron HCl (Zofran Inj) 4 mg PACU ORDER PRN IV NAUSEA/VOMITING; Start 01/27/19 at 10:00; Status UNV NAOMI SAUER NP Jan 27, 2019 09:58
[2019-01-27] MEDS ORDERED: ONDANSETRON 4 MG INJ IV PRN (10:00)
[2019-01-27] MEDS ORDERED: FENTAnyl 50 MCG/ML VIAL IV PRN ×2 (10:00)
--- NOTE | 2019-01-27 10:08 | PAC ---
Date/Time of Note Date/Time of Note DATE: 01/27/19 TIME: 10:08 Post-Anesthesia Notes Post-Anesthesia Note Last documented vital signs Vital Signs Date Temp Pulse Resp B/P (MAP) Pulse Ox O2 O2 Flow FiO2 Time Delivery Rate 01/27/19 97.8 88 17 104/56 100 Nasal 2.0 09:59 (72) Cannula Activity: WNL Respiratory function: WNL Cardiovascular function: WNL Mental status: Baseline Pain reasonably controlled: Yes Hydration appropriate: Yes Nausea/Vomiting absent: Yes MARY JARAMILLO MD Jan 27, 2019 10:08
[2019-01-27] MEDS: DOCUSATE SODIUM 100 MG CAP PO SCH ×2 (13:06→20:14)
[2019-01-27] MEDS: MAGNESIUM HYDROXIDE 30ML CUP PO SCH ×2 (13:07→20:14)
[2019-01-27] MEDS: CIPROFLOXACIN 400 MG in D5W 200 ML IVPB SCH ×2 (13:07→20:13)
[2019-01-27] MEDS ORDERED: KETOROLAC 15 MG INJ IV STA (16:04)
[2019-01-28 02:41] VITALS: BP 107/39; PULSE 87; RESP 16
[2019-01-28] MEDS: Metronidazole 500 MG in NS 100 ML IVPB SCH (05:29)
[2019-01-28 07:45] VITALS: BP 96/57; PULSE 88; RESP 20
[2019-01-28] MEDS: DEXTROSE 5%-0.45% NACL 1,000 ML IV SCH ×2 (08:30→08:37)
[2019-01-28] MEDS: CIPROFLOXACIN 400 MG in D5W 200 ML IVPB SCH (08:37)
[2019-01-28] MEDS: MAGNESIUM HYDROXIDE 30ML CUP PO SCH (08:38)
[2019-01-28] MEDS: DOCUSATE SODIUM 100 MG CAP PO SCH (08:38)
[2019-01-28] MEDS: morphine 2 MG INJ IV PRN (08:42)
--- NOTE | 2019-01-28 10:17 | PDOCDIS ---
Discharge Instructions CONDITION [id number] Patient Condition: [id number] Stable HOME CARE INSTRUCTIONS: [id number] Your diet recommendation is: [id number] Low Calorie diet FOLLOW UP/APPOINTMENTS Follow-up Plan Follow-up with Dr. Houser for your next appointment on Tuesday at his clinic. Follow-up with 's office regarding test results of liver function studies. [id number] [facility] [place] [address] Office Follow-up with primary care physician in 1 week. NAOMI SAUER NP Jan 28, 2019 10:17
[2019-01-28] MEDS ORDERED: WORK NOTE (10:20)
--- NOTE | 2019-01-28 10:24 | DS ---
Date/Time of Note Date/Time of Note DATE: 01/28/19 TIME: 10:22 Discharge Summary Admission/Discharge Info Admit Date/Time Jan 26, 2019 at 12:14 Discharge Date/Time Discharge Diagnosis 1. Abdominal pain, RUQ pain 2/2 CBD sludge. status post ERCP/sphincteroto my/sludge removal. 2. Transaminase elevation, likely concurrent with #1.stable 3. Obesity 4. Constipation 5. Recent cholecystectomy. Patient Condition: Stable Consults , gastroenterology Dr. Houser, surgeon Procedures 01.26.2019. CT abdomen pelvis with IV contrast. IMPRESSION: 1. Status post cholecystectomy. Small amount of fluid is noted within the gallbladder fossa, likely postsurgical changes. Findings may represent a small postoperative seroma or biloma. No gross CT evidence to suggest biliary leak. 2. No evidence of bowel obstruction. Stool filled loops of large bowel suggestive of constipation. The appendix is within normal limits. 3. Several fluid filled loops of small bowel which may represent mild gastroenteritis and ileus. 4. No evidence of free fluid or free air. No gross focal fluid collections. 5. 3.4 mm right-sided nonobstructing nephrolithiasis. No evidence of obstructive uropathy within both kidneys. 01/26/2019. HIDA scan. 1. Negative hepatobiliary scan. There is no evidence for bile leak. 2. Patent common bile duct with normal visualization of the small bowel. 3. S/P cholecystectomy. 01/27/2019.Procedure Performed: ERCP Pre-procedure Diagnosis Right upper quadrant abdominal pain post cholecystectomy. Abnormal liver function test Post-procedure Diagnosis Impression: Dilated CBD with an estimated maximum diameter of 12 mm. Filling defect distal common bile duct consistent with sludge. No evidence of biliary leak Post sphincterotomy. Post sludge removal. Plan: Close observation. Liver workup for hepatocellular conditions. Advance diet as tolerated. Hx of Present Illness This is a 28-year-old obese female who is status post cholecystectomy 1 week ago here at [facility], transaminase elevation, presented back to the emergency room with worsening right upper quadrant abdominal pain who was unable to get touch with the surgeon's office. Patient denied nausea, vomiting, diarrhea, fever, chills, hematochezia, melena or other GI symptoms. She also denies chest pain, palpitation, shortness of breath, numbness, tingling, dizziness, speech difficulties, vision changes or other constitutional symptoms. Patient's initial CBC unremarkable. CMP showed elevated AST 315, ALT 455. Normal bilirubin. HCG negative. Urine analysis with trace leukocyte esterase. CT scan showed no gross evidence of biliary leak. There was small amount of fluid in the gallbladder fossa, likely postsurgical changes or postoperative seroma versus biloma. There is also evidence of stool-filled loops of large bowel suggestive of constipation. No evidence of free air or fluid. There is also nonobstructing nephrolithiasis right-sided 3.4 mm. Hospital Course 28-year-old female who underwent laparoscopic cholecystectomy 1 week ago, presenting back with worsening pain in her right upper quadrant, found to have persistent transaminase elevation. Spoke with patient surgeon Dr. Houser and there was no abscess or other surgical acute issues. CT was showing questionable biloma with no visible bile leak. Manager Of Ware[employer] reviewed the case and patient underwent ERCP on 01/27/2019. Patient was noted with dilated CBD with diameter 12 mm with filling defect in distal common bile duct consistent with sludge. Patient underwent sphincterotomy with sludge removal. There was no evidence of biliary leak. Patient's LFTs trended down. Her right sided abdominal pain resolved. Surgical site from cholecystectomy remained intact. Patient was counseled on weight reduction. She was also given bowel regimen for underlying constipation. At this time, patient is feeling back to her baseline. There is no signs of infection. She is very eager to be discharged home. I discussed with Dr. Houser who will see patient in her clinic on Tuesday for which she already has an appointment. There is no further inpatient surgical follow-up needed. Approximately 60 m spent on coordinating the discharge on this patient. Patient was seen in collaboration with Dr. Benz. [facility] [employer] [Work Note] No Conflict Check Please excuse Blayne Neves attending work from 01/24/2019 to 01/30/2019 due to her medical condition. Thank you Prov:NAOMI SAUER V. TAP PULLER 01/28/19 [Work Note] No Conflict Check This is to certify that the patient was admitted to [facility] from 01/16/2019 to 01/19/2019. The patient can return back to work on 01/24/2019 with restriction of no heavy lifting more than 15 pounds until 02/15/2019. Prov:JULIEN BABIN TAP PULLER 01/19/19 Simethicone (Simethicone) 180 Mg Capsule, 180 MG PO Q6H for gas pain, #10 CAP Prov:JULIEN BABIN TAP PULLER 01/19/19 Docusate Sodium* (Colace*) 100 Mg Capsule, 100 MG PO BID, #20 CAP Prov:JULIEN BABIN TAP PULLER 01/19/19 Hydrocodone/Acetaminophen ([place] 5-325 Tablet) 1 Each Tablet, 1 EACH PO Q6H for pain, #10 TAB Prov:JULIEN BABIN TAP PULLER 01/19/19 Follow-up Plan Follow-up with Dr. Houser for your next appointment on Tuesday at his clinic. Follow-up with 's office regarding test results of liver function studies. [address] [place] [address] Office Follow-up with primary care physician in 1 week. Primary Care Provider Not On Staff Doctor Pending Labs Laboratory Tests Test 01/27/19 11:25 01/28/19 05:36 Iron Level 215 ug/dl (35-150) Total Iron Binding Capacity 336 ug/dl (241-421) Percent Iron Saturation 64 % SAT (22-52) Ferritin 173.0 ng/ml (6.2-137.0) Hepatitis B Surface Antigen NEGATIVE (NEGATIVE) Hepatitis B Core Total Antibody NEGATIVE (NEGATIVE) Hepatitis C Antibody NEGATIVE (NEGATIVE) Sodium Level 138 mmol/L (135-144) Potassium Level 4.0 mmol/L (3.5-5.1) Chloride Level 109 mmol/L (97-110) Carbon Dioxide Level 21 mmol/L (21-31) Anion Gap 8 (5-13) Blood Urea Nitrogen 9 mg/dl (7-20) Creatinine 0.54 mg/dl (0.44-1.00) Est Glomerular Filtrat > 60 mL/min (>60) Rate mL/min Glucose Level 130 mg/dl (70-220) Calcium Level 9.0 mg/dl (8.4-10.2) Total Bilirubin 0.7 mg/dl (0.2-1.3) Direct Bilirubin 0.00 mg/dl (0.00-0.20) Indirect Bilirubin 0.7 mg/dl (0-1.1) Aspartate Amino 131 IU/L (15-46) Transf (AST/SGOT) Alanine 291 IU/L (13-69) Aminotransferase (ALT/SGPT) Alkaline Phosphatase 67 IU/L (42-121) Total Protein 7.0 g/dl (6.1-8.1) Albumin 3.6 g/dl (3.3-4.9) Globulin 3.40 g/dl (1.3-3.2) Albumin/Globulin Ratio 1.05 NAOMI SAUER NP Jan 28, 2019 10:24
--- NOTE | 2019-01-28 11:58 | PN ---
Date/Time of Note Date/Time of Note DATE: 01/28/19 TIME: 11:53 Assessment/Plan VTE Prophylaxis Risk score (from Ns)>0 risk: 2 SCD applied (from Nsg): Yes Pharmacological prophylaxis: NA/contraindicated Pharm contraindication: low risk/ambulating Lines/Catheters IV Catheter Type (from Nrsg): Mid Line Urinary Cath still in place: No Assessment/Plan Hospital Course GASTROENTEROLOGY PROGRESS NOTE Assessment: Severe right upper quadrant pain 1 week post laparoscopic cholecystectomy/improvedresolved No evidence of bile leak or biloma Sludge removed for biliary tree post sphincterotomy Post laparoscopic cholecystectomy 01/18/2019 Doubt underlying liver disease Obesity Plan: Okay to discharge and follow-up as an outpatient. Patient was advised to follow-up with my office or alternatively PCP to repeat LFTs in a week and review liver workup currently pending Result Diagram: 01/27/19 0431 01/28/19 0536 Results 24hrs Laboratory Tests Test 01/28/19 05:36 Sodium Level 138 Potassium Level 4.0 Chloride Level 109 Carbon Dioxide Level 21 Anion Gap 8 Blood Urea Nitrogen 9 Creatinine 0.54 Est Glomerular Filtrat Rate mL/min > 60 Glucose Level 130 Calcium Level 9.0 Total Bilirubin 0.7 Direct Bilirubin 0.00 Indirect Bilirubin 0.7 Aspartate Amino Transf (AST/SGOT) 131 H Alanine Aminotransferase (ALT/SGPT) 291 H Alkaline Phosphatase 67 Total Protein 7.0 Albumin 3.6 Globulin 3.40 H Albumin/Globulin Ratio 1.05 Subjective 24 Hr Interval Summary Free Text/Dictation Subjective: Course reviewed with nursing staff Patient interviewed and examined All labs, imaging and other results reviewed The patient reports significant improvement if not resolution of her pain. Tolerating diet. She was advised of pending liver workup and need to follow-up liver function test in about a week. She was given instructions to call my office for the point follow-up appointment or follow-up with her PCP Exam/Review of Systems Exam Vitals Vital Signs Date Temp Pulse Resp B/P (MAP) Pulse Ox O2 O2 Flow FiO2 Time Delivery Rate 01/28/19 98.5 88 20 96/57 (70) 99 07:45 01/27/19 Room Air 14:44 01/27/19 2.0 10:05 Intake and Output 01/27/19 01/27/19 01/28/19 1515:00 23:00 07:00 IntakeIntake Total 640 ml 590 ml 1000 ml BalanceBalance 640 ml 590 ml 1000 ml Exam Exam: General: well developed, well nourished, alert and oriented x3 , in no acute distress Skin: No lesions, no stigmata chronic liver disease, no evidence of bleeding diathesis Lymphatic: No palpable lymphadenopathy HEENT: No lesions Cardiovascular: Heart: Regular rate and rhythm, no murmurs, gallops or rubs. Peripheral pulses present within normal limits, no cyanosis, clubbing or edemas. No pulsatile abdominal mass Respiratory: Lungs clear to auscultation and percussion, no wheezing, no rubs Gastrointestinal and Liver: Abdomen: Soft, mild upper abdominal tenderness, not distended, no hernias, no masses, no organomegaly, no ascites, no guarding, no rebound tenderness, normoactive bowel sounds. Extremities: No cyanosis, clubbing, or edema. Diagnostic Studies: Available data and images were reviewed personally. See reports. Significant results and findings are addressed here or in the assessment and plan. Results Results 24hrs Laboratory Tests Test 01/28/19 05:36 Sodium Level 138 Potassium Level 4.0 Chloride Level 109 Carbon Dioxide Level 21 Anion Gap 8 Blood Urea Nitrogen 9 Creatinine 0.54 Est Glomerular Filtrat Rate mL/min > 60 Glucose Level 130 Calcium Level 9.0 Total Bilirubin 0.7 Direct Bilirubin 0.00 Indirect Bilirubin 0.7 Aspartate Amino Transf (AST/SGOT) 131 H Alanine Aminotransferase (ALT/SGPT) 291 H Alkaline Phosphatase 67 Total Protein 7.0 Albumin 3.6 Globulin 3.40 H Albumin/Globulin Ratio 1.05 Medications Medication Current Medications IV Flush (NS 3 ml) 3 ml PER PROTOCOL IV ; Start 01/26/19 at 13:30 Ondansetron HCl (Zofran Inj) 4 mg Q6H PRN IV NAUSEA/VOMITING Last administered on 01/26/19at 20:58; Admin Dose 4 MG; Start 01/26/19 at 13:30 Morphine Sulfate (morphine) 2 mg Q4H PRN IV .SEVERE PAIN 7-10 Last administered on 01/28/19at 08:42; Admin Dose 2 MG; Start 01/26/19 at 13:30 Ciprofloxacin/ Dextrose 200 ml @ 200 mls/hr Q12 IVPB Last administered on 01/28/19at 08:37; Admin Dose 200 MLS/HR; Start 01/26/19 at 14:00 Metronidazole 100 ml @ 100 mls/hr Q8 IVPB Last administered on 01/28/19at 05:29; Admin Dose 100 MLS/HR; Start 01/26/19 at 14:00 Magnesium Hydroxide (Milk Of Mag) 30 ml BID PO Last administered on 01/27/19at 20:14; Admin Dose 30 ML; Start 01/26/19 at 21:00 Docusate Sodium (Colace) 200 mg BID PO Last administered on 01/28/19at 08:38; Admin Dose 200 MG; Start 01/26/19 at 21:00 Dextrose/Sodium Chloride 1,000 ml @ 100 mls/hr Q10H IV Last administered on 01/28/19at 08:37; Admin Dose 100 MLS/HR; Start 01/26/19 at 16:30 SANDRO MOJICA MD Jan 28, 2019 11:58
== END 2019-01-28 13:25 | disposition home or self-care (01) | DRG 446 ==
LOC: FTE 07:55 → 2NE 12:14
PROVIDERS: ADMIT Internal Medicine; ATTEND Internal Medicine
PROC: 0FC98ZZ Extirpation of Matter from Common Bile Duct, Via Natural or Artificial Opening Endoscopic (ICD-10-PCS; principal; 2019-01-27 09:00)
PROC: BF101ZZ Fluoroscopy of Bile Ducts using Low Osmolar Contrast (ICD-10-PCS; 2019-01-27 09:00)
DX: K83.8 Other specified diseases of biliary tract (principal); K59.00 Constipation, unspecified; R94.5 Abnormal results of liver function studies; E66.9 Obesity, unspecified; Z68.28 Body mass index [BMI] 28.0-28.9, adult
CPT/HCPCS: 74177; 74330; 78226; 80053; 81001; 81003; 81025; 82150; 82390; 82728; 83540; 83690; 83735; 84100; 85025; 86038; 86255; 86704; 86709; 86803; 87081; 87086; 87340; 96361; 96374; 96375; 96376; A9537; J0690; J0744; J1100; J1885; J2250; J2270; J2405; J3010; J7030; J7042; Q9967